=== PATIENT | male | born 1935 | race Caucasian/White ===

== ENCOUNTER → 2017-03-15 | Day surgery (SDC) | payer BC ==
[2017-03-08 08:44] VITALS: Ht 182.9 cm; Wt 84.1 kg
[~2017-03-15] VITALS: Ht 182.9 cm; Wt 84.1 kg
[~2017-03-15] MED LIST: ACET325T96 PO; ALL180 PO; DIGO0.2518 PO; DILT-115 PO; DSWCR15 TOP; FLUO0.05 TOP; HYOS1TAB PO; KETO2SHA TOP; LIDOCAINE HCL 2% 2 ML VIAL (20MG/ML) ONE; METHPOW PO; MULTCAP33 PO; PLMIN90 IN; PROPOFOL IV EMULSION 10 MG/ML 20 ML VIAL IV ONE; RIVA1TAB4 PO; [UNRECOGNIZED DRUG - OTHER] TOP
--- NOTE | 2017-03-15 12:55 | Endo History and Physical ---
History & Physical Date of Service: Mar 15, 2017. Chief Complaint: Hx colon polyps; hx colon ca with resection Referring Physician: Dr Renetta Sarkar History of Present Illness For Colonoscopy Past Surgical History Hx Cardiac Surgery: Yes (CARDIOVERSION, HEART CATH) Hx Internal Defibrillator: No Hx Pacemaker: Yes (2012) Hx Abdominal Surgery: Yes (DEBBIE) Hx of Implantable Prosthesis: No Hx Post-Op Nausea and Vomiting: No Hx Cancer Surgery: Yes (PARTIAL LG INTESTINE REMOVAL, BCC AND SCC REMOVALS) Hx Thoracic Surgery: No Hx Orthopedic: No Hx Urinary Tract Surgery: No Family History Polyp, IBD Social History Smoking Status: Former Smoker Hx Substance Use: No Hx Alcohol Use: Yes (1 DRINK DAILY) Allergies Coded Allergies: Cat Dander (Verified Allergy, Intermediate, asthma, hives, 03/08/17) Dust (Verified Allergy, Intermediate, asthma, hives, 03/08/17) Grass (Verified Allergy, Intermediate, asthma,hives, 03/08/17) Molds & Smuts (Verified Allergy, Intermediate, asthma,hives, 03/08/17) Sulfa Antibiotics (Verified Allergy, Intermediate, hives, 03/08/17) Current Medications Reported Home Medications Medications Dose Route/Sig Max Daily Dose Days Date Category Dose Instructions Preservision Areds (Multiple Vitamins W/ Minerals) 1 Cap Cap 1 Cap PO BID 12/09/15 Reported Ketoconazole (Ketoconazole (Topical)) 2 % Sha 1 Appln TOP 2XWK 12/09/15 Reported Tylenol (Acetaminophen) 325 Mg Tab 2 Tabs PO Q6 PRN 10/31/15 Reported Tiazac (Diltiazem HCl) 240 Mg Capcr 240 Mg PO QAM 01/22/14 Reported Lanoxin (Digoxin) 0.25 Mg Tab 0.25 Mg PO QD@1600 01/22/14 Reported Levsin (Hyoscyamine Sulfate) 0.125 Mg Tab 2 Tabs PO DAILY PRN 02/23/13 Reported Citrucel (Methylcellulose (Laxative)) 1 Pow Pow 1-3 Tsp PO HS 02/23/13 Reported Pulmicort Flexhaler (Budesonide (Inhaler)) 90 Mcg/ Inh 1-2 Puff IN QAM 02/23/13 Reported Xarelto (Rivaroxaban) 20 Mg Tab 20 Mg PO QAM 02/23/13 Reported Lidex 0.05% (Fluocinonide) Cr 1 Appln TOP UD 09/09/11 Reported APPLY DIRECTED TO SCALING SKIN UNDER MISHRA. Desowen 0.05% * (Desonide) Cr 1 Appln TOP UD 09/09/11 Reported APPLY DIRECTED TO EARS FOR ITCHINESS. [Lotrimin HCT 1%] 1 Appln TOP PRN 09/09/11 Reported APPLY NEEDED FOR RASH. Yenni * (Fexofenadine HCl) 180 Mg Tab 180 Mg PO QAM 08/27/06 Reported Vital Signs Weight (Kilograms): 84.09 Height (Feet): 6 Height (Inches): 0 Date Time Temp Pulse Resp B/P (MAP) Pulse Ox O2 Delivery O2 Flow Rate FiO2 03/15/17 12:41 36.4 88 20 147/79 (101) 97 Room Air Physical Exam General Appearance: WD/WN Respiratory/Chest: Respiratory effort: no dyspnea Cardiovascular: Heart Auscultation: RRR Abdomen: Inspection & Palpation: soft (Hx of colon cancer for colonoscopy) Assessment and Plan Hx of colon cancer for colonoscopy
--- NOTE | 2017-03-15 13:20 | Discharge Instructions ---
Endoscopy Patient Instructions Date / Procedure(s) Performed Mar 15, 2017. Colonoscopy Allergy Information Coded Allergies: Cat Dander (Verified Allergy, Intermediate, asthma, hives, 03/08/17) Dust (Verified Allergy, Intermediate, asthma, hives, 03/08/17) Grass (Verified Allergy, Intermediate, asthma,hives, 03/08/17) Molds & Smuts (Verified Allergy, Intermediate, asthma,hives, 03/08/17) Sulfa Antibiotics (Verified Allergy, Intermediate, hives, 03/08/17) Discharge Date / Findings Mar 15, 2017. polyp Medication Instructions Restart Stopped Medication(s): resume meds Reported Home Medications Medications Dose Route/Sig Max Daily Dose Days Date Category Dose Instructions Preservision Areds (Multiple Vitamins W/ Minerals) 1 Cap Cap 1 Cap PO BID 12/09/15 Reported Ketoconazole (Ketoconazole (Topical)) 2 % Sha 1 Appln TOP 2XWK 12/09/15 Reported Tylenol (Acetaminophen) 325 Mg Tab 2 Tabs PO Q6 PRN 10/31/15 Reported Tiazac (Diltiazem HCl) 240 Mg Capcr 240 Mg PO QAM 01/22/14 Reported Lanoxin (Digoxin) 0.25 Mg Tab 0.25 Mg PO QD@1600 01/22/14 Reported Levsin (Hyoscyamine Sulfate) 0.125 Mg Tab 2 Tabs PO DAILY PRN 02/23/13 Reported Citrucel (Methylcellulose (Laxative)) 1 Pow Pow 1-3 Tsp PO HS 02/23/13 Reported Pulmicort Flexhaler (Budesonide (Inhaler)) 90 Mcg/ Inh 1-2 Puff IN QAM 02/23/13 Reported Xarelto (Rivaroxaban) 20 Mg Tab 20 Mg PO QAM 02/23/13 Reported Lidex 0.05% (Fluocinonide) Cr 1 Appln TOP UD 09/09/11 Reported APPLY DIRECTED TO SCALING SKIN UNDER MISHRA. Desowen 0.05% * (Desonide) Cr 1 Appln TOP UD 09/09/11 Reported APPLY DIRECTED TO EARS FOR ITCHINESS. [Lotrimin HCT 1%] 1 Appln TOP PRN 09/09/11 Reported APPLY NEEDED FOR RASH. Yenni * (Fexofenadine HCl) 180 Mg Tab 180 Mg PO QAM 08/27/06 Reported Provider Instructions Activity Restrictions - No exercising or heavy lifting for 24 hours. - Do not drink alcohol the day of the procedure. - Do not drive a car or operate machinery until the day after the procedure. - Do not make any important decisions or sign important papers in 24 hours after the procedure. Following Day: - Return to full activity which may include returning to work/school. Diet Start your diet with liquids and light foods (jello, soup, juice, toast). Then eat your usual diet if not nauseated. Treatment For Common After Affects For mild abdominal pain, bloating, or excessive gas: - Rest - Eat lightly - Lie on right side Follow-Up Information Follow-up with Dr Renetta Sarkar as scheduled Anesthesia Information What You Should Know You have had a procedure that required some medicine to reduce anxiety and discomfort. This treatment is called moderate sedation. After receiving the treatment, you may be sleepy, but you will be able to breathe on your own. The effects of the treatment may last for several hours. Follow these instructions along with Activity/Diet recommendations noted above: * Do NOT do anything where dizziness or clumsiness would be dangerous. * Rest quietly at home today, then you can be up and about tomorrow. * Have a responsible person stay with you the rest of today. * You may have had an I.V. today. If so, you may take the dressing off later today. Recommendations Call your doctor if: * Trouble breathing * Continuous vomiting for more than 24 hours * Temperature above 101 degrees * Severe abdominal pain or bloating * Pain not relieved by pain medicine ordered * There is increased drainage or redness from any incision * A large amount of rectal bleeding greater than 2-3 tablespoons. (If you had a polyp/s removed or have hemorrhoids, a small amount of blood - from the rectum is to be expected.) * You have any unanswered questions or concerns. IN THE EVENT OF A SERIOUS EMERGENCY, GO TO THE NEAREST EMERGENCY ROOM Your discharge instructions were prepared by provider Vishal Carmen. Patient Instructions Signature Page Roosevelt De Los Santos Patient (or Guardian) Signature/Date: I have read and understand the instructions given to me by my caregivers. Caregiver/RN/Doctor Signature/Date: The above-named patient and/or guardian has received patient instructions on this date. + Original Patient Signature Page (only) stays with chart. Please make copy for patient.
--- NOTE | 2017-03-15 13:27 | GI REPORT ---
Procedure Date: 03/15/2017 12:49 PM Procedure: Colonoscopy Indications: Personal history of malignant neoplasm of the colon, Personal history of colonic polyps Medicines: Propofol total dose 290 mg IV, Lidocaine mg 40 IV Complications: No immediate complications. Estimated Blood Loss: Estimated blood loss was minimal. Procedure: Pre-Anesthesia Assessment: - Prior to the procedure, a History and Physical was performed, and patient medications, allergies and sensitivities were reviewed. The patient's tolerance of previous anesthesia was reviewed. - The risks and benefits of the procedure and the sedation options and risks were discussed with the patient. All questions were answered and informed consent was obtained. After I obtained informed consent, the scope was passed under direct vision. Throughout the procedure, the patient's blood pressure, pulse, and oxygen saturations were monitored continuously. The scope was introduced through the anus and advanced to the cecum, identified by appendiceal orifice and ileocecal valve. The colonoscopy was performed without difficulty. The patient tolerated the procedure well. The quality of the bowel preparation was good. Findings: A 3 mm polyp was found in the transverse colon. The polyp was sessile. The polyp was removed with a cold biopsy forceps. Resection and retrieval were complete. Estimated blood loss was minimal. There was evidence of a prior end-to-end colo-colonic anastomosis in the sigmoid colon. This was patent and was characterized by healthy appearing mucosa. The anastomosis was traversed. The terminal ileum appeared normal. Impression: - One 3 mm polyp in the transverse colon, removed with a cold biopsy forceps. Resected and retrieved. - Patent end-to-end colo-colonic anastomosis, characterized by healthy appearing mucosa. - The examined portion of the ileum was normal. Recommendation: - Discharge patient to home (ambulatory). - Continue present medications. - Await pathology results. - Return to primary care physician PRN. Vishal Carmen M.D. Vishal Carmen MD 03/15/2017 1:26:51 PM This report has been signed electronically. Note Initiated On: 03/15/2017 12:49 PM I attest to the content of the Intraoperative Record and orders documented therein, exceptions below
--- NOTE | 2017-03-15 13:51 | Anesthesiology Progress Note ---
Anesthesia Post Op Note Date & Time Mar 15, 2017 at 13:51 Vital Signs Pain Intensity: 0 Vital Signs Past 12 Hours Date Time Temp Pulse Resp B/P (MAP) Pulse Ox O2 Delivery O2 Flow Rate FiO2 03/15/17 13:40 82 20 123/65 (84) 97 Room Air 03/15/17 13:24 78 20 119/68 (85) 97 Room Air 03/15/17 12:41 36.4 88 20 147/79 (101) 97 Room Air Notes Mental Status: alert / awake / arousable, participated in evaluation Pt Amnestic to Procedure: Yes Nausea / Vomiting: adequately controlled Pain: adequately controlled Airway Patency, RR, SpO2: stable & adequate BP & HR: stable & adequate Hydration State: stable & adequate Anesthetic Complications: no major complications apparent
[2017-03-15 14:00] VITALS: BP 122/71; PULSE 83; O2SAT 97
== END | disposition home or self-care (01) ==
LOC: C.GI 12:14
PROVIDERS: ATTEND Internal Medicine Gastroenterology
DX: D12.3 Benign neoplasm of transverse colon (principal); Z85.038 Personal history of other malignant neoplasm of large intestine; Z86.010 Personal history of colon polyps; Z98.0 Intestinal bypass and anastomosis status; Z87.891 Personal history of nicotine dependence; Z79.899 Other long term (current) drug therapy; Z79.02 Long term (current) use of antithrombotics/antiplatelets

== ENCOUNTER → 2017-04-10 | Outpatient (CLI) | payer BC ==
[~2017-04-10] MED LIST changes: -LIDOCAINE HCL 2% 2 ML VIAL (20MG/ML) ONE; -PROPOFOL IV EMULSION 10 MG/ML 20 ML VIAL IV ONE
[2017-04-10 16:21] LABS: BASO % 0.3 %; BASO ABS # 0.03 K/uL (0-0.2); COMPLETE YES; EOS % 1.7 %; HEMATOCRIT 45.9 % (42-52); IG% 0.4 %; LYMPH % 15.4 %; LYMPH ABS # 1.46 K/uL (1.2-3.4); MEAN CORPUSCULAR HEMOGLOBIN 32.7 pg (25-34); MEAN CORPUSCULAR HGB CONC 34.4 g/dl (32-36); MONO % 15.9 %; NEUT % 66.3 %; PLATELET COUNT 211 K/uL (130-400); RED BLOOD COUNT 4.83 M/uL (4.7-6.1); WHITE BLOOD COUNT 9.49 K/uL (4.8-10.8)
[2017-04-10 16:31] LABS: ALT/SGPT 42 U/L (12-78); BLOOD UREA NITROGEN 19 mg/dl (7-18); BUN/CREATININE RATIO 15.8 (10-20); C-REACTIVE PROTEIN 2.35 mg/dl (0-0.29); CALCIUM 9.2 mg/dl (8.5-10.1); CARBON DIOXIDE 26 mmol/L (21-32); CHLORIDE 105 mmol/L (98-107); GLUCOSE 88 mg/dl (70-99); POTASSIUM 4.7 mmol/L (3.5-5.1); SODIUM 137 mmol/L (136-145)
[2017-04-10 16:34] LABS: ALB/GLOB RATIO 0.9 (0.9-2); ALKALINE PHOSPHATASE 82 U/L (45-117); AST/SGOT 29 U/L (15-37); RHEUMATOID FACTOR < 10.0 U/mL (0-15)
[2017-04-10 17:26] LABS: LYME DISEASE AB IGG NEG (NEG); LYME DISEASE AB IGM NEG (NEG)
== END | disposition home or self-care (01) ==
LOC: C.LABSPEC 15:36
PROVIDERS: ATTEND Internal Medicine
DX: M06.4 Inflammatory polyarthropathy (principal); M79.1 Myalgia

== ENCOUNTER → 2017-04-12 | Outpatient (CLI) | payer BC ==
--- NOTE | 2017-04-12 11:30 | DIAGNOSTIC IMAGING REPORT ---
CT OF THE CERVICAL SPINE CLINICAL HISTORY: Cervical radicular pain COMPARISON STUDY: Conventional radiographic study dated 10/31/2015 CT DOSE: 501.88 mGycm TECHNIQUE: CT scan of the cervical spine was performed from the skull base to the thoracic inlet. Images are reviewed in the axial, sagittal, and coronal planes. IV contrast was not administered for this examination. A dose lowering technique was utilized adhering to the principles of ALARA. FINDINGS: The visualized portions of the lung apices reveal no evidence of pneumothorax. The prevertebral soft tissues are normal. No fractures or subluxations are visualized. There are multilevel degenerative changes most pronounced the C4-5, C5-6, and C6-7 levels. There is minor foraminal narrowing at these 3 levels. There is a small posterior disc osteophyte complex at the C5-6 level. IMPRESSION: 1. No acute fractures or traumatic subluxations 2. No destructive lesions 3. Degenerative changes most pronounced the C4-5, C5-6, and C6-7 levels. Electronically signed by: Babak Roy M.D. 04/12/2017 11:28 AM Dictated Date/Time: 04/12/2017 11:25 AM
== END | disposition home or self-care (01) ==
LOC: C.CTS 11:04
PROVIDERS: ATTEND Pain Medicine Interventional Pain Medicine
DX: M54.12 Radiculopathy, cervical region (principal); M50.321 Other cervical disc degeneration at C4-C5 level; M50.322 Other cervical disc degeneration at C5-C6 level; M50.323 Other cervical disc degeneration at C6-C7 level

== ENCOUNTER → 2017-04-29 | Outpatient (CLI) | payer BC | END | disposition home or self-care (01) | LOC: C.LABSPEC 12:20 | PROVIDERS: ATTEND Internal Medicine | DX: R35.0 Frequency of micturition (principal) ==

== ENCOUNTER → 2017-08-12 | Day surgery (SDC) | payer BC ==
[~2017-08-12] VITALS: Ht 182.9 cm; Wt 84.0 kg
[~2017-08-12] MED LIST changes: +AMIO200T4 PO; +CRFL PO; -DIGO0.2518 PO; -FLUO0.05 TOP; +LTRCR30; -METHPOW PO; +METHPOW7; +PANT40TA PO; +PRED-301 PO; +PTDOPS OP; +TRMCR130WC; +[UNRECOGNIZED DRUG - CODE]
[2017-08-12 07:10] VITALS: BP 146/95; PULSE 86; TEMP 36.7; O2SAT 96; Ht 182.9 cm; Wt 84.0 kg
[2017-08-12 07:36] VITALS: BP 146/95; PULSE 92; O2SAT 96
[2017-08-12 07:40] VITALS: BP 153/89; PULSE 92; O2SAT 96
--- NOTE | 2017-08-12 07:40 | History & Physical Bridge Note ---
H&P Re-Evaluation Bridge Note: I have examined the patient, reviewed the History & Physical and in the interval since the performance of the History & Physical I have noted the following changes of clinical significance: No changes noted. I reviewed the indications, procedure, risks and alternatives and he understands and agrees to proceed. Consent obtained.
[2017-08-12 07:45] VITALS: BP 153/91; PULSE 92; O2SAT 96
[2017-08-12 07:50] VITALS: BP 125/105; PULSE 92; O2SAT 96
--- NOTE | 2017-08-12 08:21 | Cardioversion ---
Electricial Cardioversion Rpt Date of Service: 08/12/2017 Electrical Cardioversion Rprt The patient was brought to the laboratory being NPO after midnight and was identified in the laboratory, connected to the recording apparatus including electrocardiographic monitoring, noninvasive blood pressure monitoring and pulse oximetry. Anteroposterior patch electrodes were placed. The patient was anesthetized by the anesthesia department. Once adequate anesthesia was obtained a synchronized biphasic shock was delivered using 200 J with conversion to a sinus rhythm. The patient awoke from the anesthetic without sequela, will be observed briefly and then discharged.
--- NOTE | 2017-08-12 09:32 | Discharge Instructions ---
Discharge Instructions Date of Service Aug 12, 2017. Admission Reason for Admission: Atrial fibrillation Discharge Discharge Diagnosis / Problem: Electrical cardioversion Discharge Goals Goal(s): Improve disease control Activity Recommendations Activity Limitations: resume your previous activity . Instructions / Follow-Up Instructions / Follow-Up ACTIVITY RECOMMENDATIONS: * May resume driving tomorrow. SPECIAL CARE: * May apply burn ointment for skin irritation. * Please contact physician for any lightheadedness, dizziness or palpitations. Current Hospital Diet Patient's current hospital diet: AHA Diet (Heart Healthy) Discharge Diet Recommended Diet: AHA Diet (Heart Healthy) Pending Studies Studies pending at discharge: no Medical Emergencies . Who to Call and When: Medical Emergencies: If at any time you feel your situation is an emergency, please call 911 immediately. . Non-Emergent Contact Non-Emergency issues call your: Primary Care Provider . . "Provider Documentation" section prepared by Victor Manuel Osorio. . VTE Core Measure Inpt VTE Proph given/why not?: Other Anticoagulation
[2017-08-12 09:45] VITALS: BP 127/72; PULSE 64; O2SAT 98
--- NOTE | 2017-08-12 09:52 | Anesthesiology Progress Note ---
Anesthesia Post Op Note Date & Time Aug 12, 2017 at 09:52 Vital Signs Pain Intensity: 0 Vital Signs Past 12 Hours Date Time Temp Pulse Resp B/P (MAP) Pulse Ox O2 Delivery O2 Flow Rate FiO2 08/12/17 09:30 65 16 132/72 (92) 98 Room Air 08/12/17 09:15 60 16 124/68 (86) 98 Room Air 08/12/17 09:00 65 16 128/70 (89) 98 Room Air 08/12/17 08:45 64 16 134/70 (91) 98 Room Air 08/12/17 08:30 65 14 137/73 (94) 96 Room Air 08/12/17 08:25 69 14 120/64 (82) 96 Room Air 08/12/17 08:10 68 14 118/60 (79) 96 Room Air 08/12/17 08:00 65 14 118/65 (82) 96 Room Air 08/12/17 07:50 92 14 125/105 96 Room Air 08/12/17 07:50 92 14 125/105 (112) 96 Room Air 08/12/17 07:45 92 14 153/91 96 Room Air 08/12/17 07:40 92 14 153/89 96 Room Air 08/12/17 07:36 92 14 146/95 96 Room Air 08/12/17 07:10 36.7 86 16 146/95 96 Room Air Notes Mental Status: alert / awake / arousable, participated in evaluation Pt Amnestic to Procedure: Yes Nausea / Vomiting: adequately controlled Pain: adequately controlled Airway Patency, RR, SpO2: stable & adequate BP & HR: stable & adequate Hydration State: stable & adequate Anesthetic Complications: no major complications apparent
== END | disposition home or self-care (01) ==
LOC: C.CATH 06:50
PROVIDERS: ATTEND Internal Medicine Cardiovascular Disease
DX: I48.91 Unspecified atrial fibrillation (principal); Z95.0 Presence of cardiac pacemaker; J45.909 Unspecified asthma, uncomplicated; I10 Essential (primary) hypertension; Z85.828 Personal history of other malignant neoplasm of skin; Z82.5 Family history of asthma and other chronic lower respiratory diseases; Z80.0 Family history of malignant neoplasm of digestive organs; Z82.49 Family history of ischemic heart disease and other diseases of the circulatory system; Z87.891 Personal history of nicotine dependence; Z88.2 Allergy status to sulfonamides

== ENCOUNTER → 2017-09-20 | Day surgery (SDC) | payer BC ==
[~2017-09-20] VITALS: Ht 182.9 cm; Wt 82.0 kg
[~2017-09-20] MED LIST changes: +CLOB1OIN2 TOP; +DILT120C PO; +DLCSR120 PO; +LIDOCAINE HCL 2% 2 ML VIAL (20MG/ML) ONE; +PROPOFOL IV EMULSION 10 MG/ML 20 ML VIAL IV ONE
[2017-09-20 06:53] VITALS: BP 158/94; PULSE 96; TEMP 36.3; O2SAT 95; Ht 182.9 cm; Wt 82.0 kg
[2017-09-20 07:55] VITALS: BP 141/94; PULSE 92; O2SAT 99
[2017-09-20 08:00] VITALS: BP 129/73; PULSE 65; O2SAT 99
--- NOTE | 2017-09-20 08:12 | Anesthesiology Progress Note ---
Anesthesia Post Op Note Date & Time Sep 20, 2017 at 08:11 Vital Signs Pain Intensity: 0 Vital Signs Past 12 Hours Date Time Temp Pulse Resp B/P (MAP) Pulse Ox O2 Delivery O2 Flow Rate FiO2 09/20/17 08:00 65 18 129/73 99 Nasal Cannula 6 09/20/17 07:55 92 18 141/94 99 Nasal Cannula 6 09/20/17 06:53 36.3 96 18 158/94 (115) 95 Room Air Notes Mental Status: alert / awake / arousable, participated in evaluation Pt Amnestic to Procedure: Yes Nausea / Vomiting: adequately controlled Pain: adequately controlled Airway Patency, RR, SpO2: stable & adequate BP & HR: stable & adequate Hydration State: stable & adequate Anesthetic Complications: no major complications apparent
--- NOTE | 2017-09-20 08:16 | Cardioversion ---
Electricial Cardioversion Rpt Date of Service: 09/20/2017 Electrical Cardioversion Rprt The patient was brought to the laboratory being NPO after midnight and was identified in the laboratory, connected to the recording apparatus including electrocardiographic monitoring, noninvasive blood pressure monitoring and pulse oximetry. Anteroposterior patch electrodes were placed. The patient was anesthetized by the anesthesia department. Once adequate anesthesia was obtained a synchronized biphasic shock was delivered using 200 J with conversion to a sinus rhythm. The pacer was interrogated and reprogrammed to a higher atrial pacing rate to reduce risk of recurrence. The patient awoke from the anesthetic without sequela, will be observed briefly and then discharged.
--- NOTE | 2017-09-20 08:49 | Discharge Instructions ---
Discharge Instructions Date of Service Sep 20, 2017. Admission Reason for Admission: Atrial fibrillation Discharge Discharge Diagnosis / Problem: Atrial fibrillation Discharge Goals Goal(s): Improve disease control Activity Recommendations Activity Limitations: resume your previous activity . Instructions / Follow-Up Instructions / Follow-Up ACTIVITY RECOMMENDATIONS: * May resume driving tomorrow. SPECIAL CARE: * May apply burn ointment for skin irritation. * Please contact physician for any lightheadedness, dizziness or palpitations. Current Hospital Diet Patient's current hospital diet: AHA Diet (Heart Healthy) Discharge Diet Recommended Diet: AHA Diet (Heart Healthy) Procedures Procedures Performed: Electrical cardioversion Pending Studies Studies pending at discharge: no Medical Emergencies . Who to Call and When: Medical Emergencies: If at any time you feel your situation is an emergency, please call 911 immediately. . Non-Emergent Contact Non-Emergency issues call your: Primary Care Provider . . "Provider Documentation" section prepared by Victor Manuel Osorio. . VTE Core Measure Inpt VTE Proph given/why not?: Other Anticoagulation
[2017-09-20 09:00] VITALS: BP 150/82; PULSE 85; O2SAT 95
== END | disposition home or self-care (01) ==
LOC: C.CATH 06:41 → CANBEDREQ 09:11
PROVIDERS: ATTEND Internal Medicine Cardiovascular Disease
DX: I48.0 Paroxysmal atrial fibrillation (principal); C85.90 Non-Hodgkin lymphoma, unspecified, unspecified site; H35.30 Unspecified macular degeneration; L11.1 Transient acantholytic dermatosis [Grover]; J45.909 Unspecified asthma, uncomplicated; I48.92 Unspecified atrial flutter; I10 Essential (primary) hypertension; Z85.828 Personal history of other malignant neoplasm of skin; Z79.899 Other long term (current) drug therapy; Z79.01 Long term (current) use of anticoagulants; Z79.52 Long term (current) use of systemic steroids; Z95.0 Presence of cardiac pacemaker

== ENCOUNTER → 2017-11-11 | Outpatient (CLI) | payer BC ==
[~2017-11-11] MED LIST changes: +ACET-1693 PO; -ACET325T96 PO; -DILT-115 PO; +DILT-213 PO; -DILT120C PO; -LIDOCAINE HCL 2% 2 ML VIAL (20MG/ML) ONE; -PANT40TA PO; -PROPOFOL IV EMULSION 10 MG/ML 20 ML VIAL IV ONE
--- NOTE | 2017-11-11 10:46 | DIAGNOSTIC IMAGING REPORT ---
CHEST 2 VIEWS ROUTINE CLINICAL HISTORY: CHRONIC COUGH COMPARISON STUDY: Chest radiograph and chest CT October 31, 2015 per FINDINGS: A dual lead left subclavian pacemaker is in place. There is no pneumothorax or pleural effusion. There is no consolidation or evidence for pulmonary edema. There is mild lower lung interstitial thickening. There is no consolidation to suggest pneumonia. IMPRESSION: 1. No consolidation to suggest pneumonia. 2. Mild lower lung interstitial thickening. This likely reflects normal vasculature however early interstitial lung disease could have this appearance. Electronically signed by: Timothy Torrez M.D. 11/11/2017 10:45 AM Dictated Date/Time: 11/11/2017 10:35 AM
== END | disposition home or self-care (01) ==
LOC: C.RAD 09:54
PROVIDERS: ATTEND Internal Medicine
DX: R05 Cough (principal)

== ENCOUNTER → 2017-11-12 | Outpatient (CLI) | payer BC ==
--- NOTE | 2017-11-12 08:58 | DIAGNOSTIC IMAGING REPORT ---
(BARIUM SWALLOW) ESOPHAGUS CLINICAL HISTORY: 82 years-old Male with DYSPHAGIA,CHRONIC COUGH. Chronic cough with dysphagia TECHNIQUE: Barium contrast and effervescent crystals were administered to the patient under fluoroscopic examination. Multiple images were obtained and submitted for review. FLUOROSCOPY TIME: 1.3 minutes COMPARISON: CTA of the chest 10/31/2015. FINDINGS: During deglutition, contrast material flowed freely through the cervical esophagus. No filling defect or mucosal abnormality is identified. No abnormal stricturing or mass effect is seen. The mid to distal esophagus is well coated and distended. No abnormal stricturing or mucosal abnormality is identified. No significant reflux or hiatal hernia was demonstrated during the exam. The GE junction is normal in appearance. Mild tertiary contractions of the distal esophagus. Cardiac pacer leads are partially imaged. IMPRESSION: Mild esophageal dysmotility with tertiary contractions of the distal esophagus. Otherwise normal esophagram. The above report was generated using voice recognition software. It may contain grammatical, syntax or spelling errors. Electronically signed by: Josue Jacobs M.D. 11/12/2017 8:56 AM Dictated Date/Time: 11/12/2017 8:54 AM
== END | disposition home or self-care (01) ==
LOC: C.RAD 07:51
PROVIDERS: ATTEND Internal Medicine
DX: R05 Cough (principal); R13.10 Dysphagia, unspecified

== ENCOUNTER → 2018-01-03 | Outpatient (CLI) | payer BC ==
[~2018-01-03] MED LIST changes: +CPR/500 PO; +FEXO1TAB49 PO; +PLMIN90 INH
[2018-01-03 13:09] LABS: BASO % 0.2 %; BASO ABS # 0.02 K/uL (0-0.2); EOS % 0.2 %; EOS ABS # 0.02 K/uL (0-0.5); HEMATOCRIT 42.1 % (42-52); HEMOGLOBIN 14.1 g/dL (14.0-18.0); IG# 0.05 K/uL (0.00-0.02); LYMPH % 5.3 %; LYMPH ABS # 0.66 K/uL (1.2-3.4); MEAN CELL VOLUME 92.1 fL (80-100); MEAN CORPUSCULAR HEMOGLOBIN 30.9 pg (25-34); MEAN CORPUSCULAR HGB CONC 33.5 g/dl (32-36); MEAN PLATELET VOLUME 11.8 fL (7.4-10.4); MONO % 15.6 %; MONO ABS # 1.93 K/uL (0.11-0.59); NEUT % 78.3 %; PLATELET COUNT 227 K/uL (130-400); RED CELL DISTRIBUTION WIDTH CV 14.7 % (11.5-14.5); RED CELL DISTRIBUTION WIDTH SD 49.6 fL (36.4-46.3); WHITE BLOOD COUNT 12.38 K/uL (4.8-10.8)
[2018-01-03 13:23] LABS: ALBUMIN 2.9 gm/dl (3.4-5.0); ALT/SGPT 55 U/L (12-78); AST/SGOT 63 U/L (15-37); BLOOD UREA NITROGEN 26 mg/dl (7-18); CALCIUM 8.5 mg/dl (8.5-10.1); CARBON DIOXIDE 24 mmol/L (21-32); CREATININE 1.42 mg/dl (0.60-1.40); GLUCOSE 124 mg/dl (70-99); SODIUM 133 mmol/L (136-145)
[2018-01-03 13:28] LABS: ALKALINE PHOSPHATASE 91 U/L (45-117); TOTAL PROTEIN 7.1 gm/dl (6.4-8.2)
== END | disposition home or self-care (01) ==
LOC: C.LABSPEC 12:24
PROVIDERS: ATTEND Internal Medicine
DX: R06.00 Dyspnea, unspecified (principal); N41.9 Inflammatory disease of prostate, unspecified

== ENCOUNTER 2018-01-04 09:15 | Inpatient (IN) | payer BC, OTHER ==
[~2018-01-04] VITALS: Ht 182.9 cm; Wt 83.2 kg
[2018-01-04] VITALS (8 sets, daily range): BP systolic 126–151; BP diastolic 65–86; PULSE 71–84; TEMP 36.4–37.4; O2SAT 92–97; Ht 182.9 cm; Wt 83.2 kg
[~2018-01-04 09:15] MED LIST changes: -CPR/500 PO; -FEXO1TAB49 PO; -PLMIN90 INH
[2018-01-04] MEDS ORDERED: ONDANSETRON INJ 2 MG/ML 2 ML VIAL IV STA (09:38)
--- NOTE | 2018-01-04 09:45 | EMERGENCY ROOM VISIT NOTE ---
History Report prepared by Pepper: Gurvinder Blunt Under the Supervision of: Dr. Tremayne Barton D.O. First contact with patient: 09:33 Chief Complaint: ILLNESS Stated Complaint: FEVER,VOMITING,WEAKNESS,HAS PROSTITIS History of Present Illness The patient is a 82 year old male who presents to the Emergency Room with complaints of worsening illness symptoms that began 4 days ago. Patient states that he is unable to urinate. He states that it "landeros" when he does urinate. Patient adds that he got shortness of breath yesterday. Patient states that he has also felt nauseas. He states that he is currently nauseas in the ER. He adds that he has had an intermittent fever for the past 2 days. Patient adds that his stomach is more distended than usual. He adds that he has had a cough. He states that he saw Dr. Cordon last week. Patient states that he took two doses of Cipro yesterday and 1 today. He states that he started "profusely vomiting" after taking the medication. He denies back pain. Patient states that he does not use oxygen at home. Pertinent past medical history includes atrial fibrillation. He states that the atrial fibrillation was resolved a month ago. Patient states that he takes 5mg of Prednisone for his arthritis. He states that he has not take Prednisone the past 2 days. He states that his family doctor is Dr. Tano Bush. Source of History: patient Onset: 4 days ago Position: other (Global) Timing: worsening Modifying Factors (Relieving): other (None) Associated Symptoms: + fevers, + SOB, + nausea, + vomiting, + urinary symptoms, No back pain Review of Systems See HPI for pertinent positives & negatives. A total of 10 systems reviewed and were otherwise negative. 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 (16) Sciatica Family History Heart disease Lung disease Social History Smoking Status: Never Smoker Marital Status: Housing Status: lives with family Occupation Status: retired Current/Historical Medications Scheduled Amiodarone Hcl (Cordarone), 200 MG PO DAILY Budesonide (Pulmicort Flexhaler), 1-2 PUFFS INH QAM Ciprofloxacin (Ciprofloxacin HCl), 1 TAB PO UD Clobetasol Propionate (Temovate), 1 APPLN TOP BID Clotrimazole (Lotrimin 1%), DIRECTED Fexofenadine Hcl (Yenni Allergy), 180 MG PO QAM Ketoconazole (Topical) (Ketoconazole), 1 APPLN TOP 2XWK Methylcellulose (Laxative) (Citrucel Fiber Laxative), DIRECTED Multiple Vitamins W/ Minerals (Preservision Areds), 1 CAP PO BID Olopatadine Hydrochloride (Pataday), 1 DROPS OP DIRECTED Prednisone (Prednisone), 5 MG PO DAILY Ranibizumab (Lucentis), DIRECTED Rivaroxaban (Xarelto), 20 MG PO QAM Sucralfate (Carafate), 10 ML PO QID Triamcinolone Acet (Aristocort 0.1%), DIRECTED [Lotrimin HCT 1%], 1 APPLN TOP PRN Scheduled PRN Acetaminophen Tab (Tylenol), 2 TABS PO Q6 PRN for Pain Hyoscyamine Sulfate (Levsin), 2 TABS PO DAILY PRN for ABDOMINAL CRAMPING Allergies Coded Allergies: Cat Dander (Verified Allergy, Intermediate, asthma, hives, 01/04/18) Dust (Verified Allergy, Intermediate, asthma, hives, 01/04/18) Grass (Verified Allergy, Intermediate, asthma,hives, 01/04/18) Molds & Smuts (Verified Allergy, Intermediate, asthma,hives, 01/04/18) Sulfa Antibiotics (Verified Allergy, Intermediate, hives, 01/04/18) Physical Exam Vital Signs Date Time Temp Pulse Resp B/P (MAP) Pulse Ox O2 Delivery O2 Flow Rate FiO2 01/04/18 10:25 70 16 128/66 93 Nasal Cannula 5.0 01/04/18 09:49 89 Nasal Cannula 4.0 01/04/18 09:35 75 01/04/18 09:23 36.8 76 28 122/60 71 Room Air Physical Exam GENERAL: Patient is awake, alert, and in no acute distress. Patient is resting comfortably and somewhat anxious EYES: The conjunctivae are clear. The pupils are round and reactive. EARS, NOSE, MOUTH AND THROAT: The nose is without any evidence of any deformity. Mucous membranes are moist tongue is midline NECK: The neck is nontender and supple. RESPIRATORY: Lung sounds diminished at both bases. Rales at both bases. CARDIOVASCULAR: Regular rate and rhythm noted to auscultation. Fracture rub suggested on auscultation. GASTROINTESTINAL: The abdomen is moderately distended with suprapubic tenderness to palpitation. No guarding or rigidity. Bowel sounds are present in all quadrants. BACK: No midline tenderness or or step-off noted range of motion in flexion extension as well as rotation no signs of muscle spasm noted MUSCULOSKELETAL/EXTREMITIES: There is no evidence of gross deformity full range of motion is noted in the hips and shoulders SKIN: There is no obvious evidence of any rash. There are no petechiae, pallor or cyanosis noted. NEUROLOGIC: Patient is awake alert and oriented x3. Medical Decision & Procedures ER Provider Diagnostic Interpretation: Radiology results as stated below per my review and radiologist interpretation: (CHEST FOR PE) ANGIO WITH CLINICAL HISTORY: 82 years-old Male presenting with ^SOB, weakness, fever. TECHNIQUE: Multidetector CT angiography of the chest was performed after administration of intravenous contrast. 3-D volumetric and/or maximum intensity projection (MIP) images were subsequently reconstructed for review. IV contrast: 94 mL of Optiray 320. A dose lowering technique was used consistent with the principles of ALARA (as low as reasonably achievable). COMPARISON: 10/31/2015. CT DOSE (mGy.cm): The estimated cumulative dose is 466.46 mGy.cm. FINDINGS: Storage Facility Rental Clerk topogram: Diffuse pulmonary infiltrates. 2-lead left subclavian pacer. Pulmonary vasculature: The study is adequate for assessment of the pulmonary vascular tree. No filling defect within the pulmonary arteries to suggest embolus. Main pulmonary artery is not enlarged. No flattening of the interventricular septum. No intracardiac filling defect. No reflux of contrast into the hepatic veins. Remaining chest: On soft tissue windows, normal thyroid and thoracic inlet. Numerous subcentimeter lymph nodes in the prevascular region are abnormally enlarged. Enlarged subcentimeter bilateral hilar lymph nodes. These are likely reactive. Atherosclerosis of the aorta. Mild ectasia of the ascending aorta, which measures 4 cm in diameter. Normal heart size. Coronary artery and aortic valve calcification. Pacer leads to the right atrium and right ventricular apex noted. No pericardial effusion. Trace pleural effusions. Upper abdomen normal. On lung windows, diffuse groundglass and patchy solid nodular consolidation with a central and peribronchovascular predominance is evident in all 5 lobes most severely affecting the upper lobes. Airways remain patent though bronchial wall thickening may be present to a mild degree. Interlobular septal thickening. On bone windows, degenerative changes of the spine. IMPRESSION: 1. No evidence of pulmonary embolus. 2. Diffuse pulmonary infiltrates most concerning for multifocal pneumonia or diffuse alveolar damage. 3. Trace bilateral parapneumonic effusions. 4. Reactive mediastinal and hilar lymphadenopathy. Electronically signed by: Wander Kay M.D. 01/04/2018 11:25 AM CHEST ONE VIEW PORTABLE CLINICAL HISTORY: 82 years-old Male presenting with Sepsis. TECHNIQUE: Portable upright AP view of the chest was obtained. COMPARISON: 11/11/2017. FINDINGS: Left subclavian pacer with leads to the right atrium and right ventricular apex. Atherosclerosis of aortic arch. Cardiac silhouette mildly enlarged. Pulmonary vascular prominence. Bronchial wall thickening. Patchy and hazy diffuse lung opacities with a mid to basilar predominance new from prior. No large pleural effusion or pneumothorax. Osseous structures normal. Upper abdomen normal. IMPRESSION: 1. Patchy diffuse infiltrates could represent pulmonary edema, multifocal pneumonia, or diffuse alveolar damage. 2. Mild cardiomegaly with findings suggesting congestive change. Electronically signed by: Wander Kay M.D. 01/04/2018 10:08 AM Laboratory Results 01/04/18 09:50 Red Blood Count 4.27, Mean Corpuscular Volume 89.7, Mean Corpuscular Hemoglobin 31.6, Mean Corpuscular Hemoglobin Concent 35.2, Mean Platelet Volume 11.1, Neutrophils (%) (Auto) 84.4, Lymphocytes (%) (Auto) 3.8, Monocytes (%) (Auto) 11.1, Eosinophils (%) (Auto) 0.1, Basophils (%) (Auto) 0.2, Neutrophils # (Auto ) 10.82, Lymphocytes # (Auto) 0.48, Monocytes # (Auto) 1.42, Eosinophils # (Auto ) 0.01, Basophils # (Auto) 0.02 01/04/18 09:50 Test 01/04/18 09:50 01/04/18 09:56 01/04/18 10:15 01/04/18 10:18 White Blood Count 12.80 K/uL (4.8-10.8) Red Blood Count 4.27 M/uL (4.7-6.1) Hemoglobin 13.5 g/dL (14.0-18.0) Hematocrit 38.3 % (42-52) Mean Corpuscular Volume 89.7 fL (80-100) Mean Corpuscular Hemoglobin 31.6 pg (25-34) Mean Corpuscular Hemoglobin Concent 35.2 g/dl (32-36) Platelet Count 186 K/uL (130-400) Mean Platelet Volume 11.1 fL (7.4-10.4) Neutrophils (%) (Auto) 84.4 % Lymphocytes (%) (Auto) 3.8 % Monocytes (%) (Auto) 11.1 % Eosinophils (%) (Auto) 0.1 % Basophils (%) (Auto) 0.2 % Neutrophils # (Auto) 10.82 K/uL (1.4-6.5) Lymphocytes # (Auto) 0.48 K/uL (1.2-3.4) Monocytes # (Auto) 1.42 K/uL (0.11-0.59) Eosinophils # (Auto) 0.01 K/uL (0-0.5) Basophils # (Auto) 0.02 K/uL (0-0.2) RDW Standard Deviation 47.3 fL (36.4-46.3) RDW Coefficient of Variation 14.3 % (11.5-14.5) Immature Granulocyte % (Auto) 0.4 % Immature Granulocyte # (Auto) 0.05 K/uL (0.00-0.02) Erythrocyte Sedimentation Rate 38 mm/hr (0-14) Prothrombin Time 16.3 SECONDS (9.0-12.0) Prothromb Time International Ratio 1.6 (0.9-1.1) Activated Partial Thromboplast Time 50.9 SECONDS (21.0-31.0) Partial Thromboplastin Ratio 2.0 Est Creatinine Clear Calc Drug Dose 41.6 ml/min Estimated GFR () 48.7 Estimated GFR (Non- 42.0 BUN/Creatinine Ratio 19.2 (10-20) Calcium Level 8.0 mg/dl (8.5-10.1) Phosphorus Level 2.6 mg/dl (2.5-4.9) Magnesium Level 1.8 mg/dl (1.8-2.4) Total Bilirubin 1.1 mg/dl (0.2-1) Aspartate Amino Transf (AST/SGOT) 132 U/L (15-37) Alanine Aminotransferase (ALT/SGPT) 108 U/L (12-78) Alkaline Phosphatase 91 U/L (45-117) Total Creatine Kinase 132 U/L (39-308) Creatine Kinase MB 2.3 ng/ml (0.5-3.6) Creatine Kinase MB Ratio 1.7 (0-3.0) C-Reactive Protein 30.00 mg/dl (0-0.29) Pro-B-Type Natriuretic Peptide 3001 pg/ml (0-1800) Total Protein 6.6 gm/dl (6.4-8.2) Albumin 2.6 gm/dl (3.4-5.0) Globulin 4.0 gm/dl (2.5-4.0) Albumin/Globulin Ratio 0.6 (0.9-2) Lipase 112 U/L (73-393) Bedside Lactic Acid Venous 4.77 mmol/L (0.90-1.70) Urine Color DK YELLOW Urine Appearance CLEAR (CLEAR) Urine pH 5.0 (4.5-7.5) Urine Specific [place] 1.039 (1.000-1.030) Urine Protein 1+ (NEG) Urine Glucose (UA) NEG (NEG) Urine Ketones TRACE (NEG) Urine Occult Blood NEG (NEG) Urine Nitrite POS (NEG) Urine Bilirubin NEG (NEG) Urine Urobilinogen NEG (NEG) Urine Leukocyte Esterase NEG (NEG) Urine WBC (Auto) 1-5 /hpf (0-5) Urine RBC (Auto) 0-4 /hpf (0-4) Urine Hyaline Casts (Auto) 1-5 /lpf (0-5) Urine Epithelial Cells (Auto) 10-20 /lpf (0-5) Urine Bacteria (Auto) NEG (NEG) Urine Crystals AMORPHOUS SEDIMENT (NONE Urine Pathogenic Casts 0-3 GRANULAR CASTS /lpf (0) Venous Blood pH 7.44 (7.36-7.41) Venous Blood Partial Pressure CO2 35 mmHg (38.0-50.0) Venous Blood Partial Pressure O2 29 mmHg Venous Blood HCO3 23 mmol/L Venous Blood Oxygen Saturation < 60.0 % Venous Blood Base Excess -0.5 mEq/L Test 01/04/18 10:21 Bedside Hemoglobin 13.3 g/dl (14.0-18.0) Bedside Hematocrit 39 % (42-52) Bedside Sodium 130 mEq/L (135-144) Bedside Potassium 4.3 mEq/L (3.3-5.0) Bedside Chloride 94 mEq/L (101-112) Bedside Total CO2 21 mEq/l (24-31) Anion Gap 20.0 mmol/L (16-25) Bedside Blood Urea Nitrogen 29 mg/dl (7-18) Bedside Creatinine 1.2 mg/dl (0.6-1.3) Bedside Glucose (other) 161 mg/dl (70-99) Bedside Ionized Calcium (Carla) 1.08 mmol/l (1.12-1.32) Laboratory results per my review. Medications Administered Medications (Trade) Dose Ordered Sig/Sirisha Route Start Time Stop Time Status Last Admin Dose Admin Ondansetron HCl (Zofran Inj) 4 mg NOW STAT IV 01/04/18 09:38 01/04/18 09:39 DC 01/04/18 10:29 4 MG Piperacillin Sod/ Tazobactam Sod (Zosyn Iv) 4.5 gm NOW STAT IV 01/04/18 10:33 01/04/18 10:34 DC 01/04/18 10:52 4.5 GM Sodium Chloride 1,000 ml @ 999 mls/hr Q1H1M STAT IV 01/04/18 10:42 01/04/18 11:42 DC 01/04/18 10:54 999 MLS/HR ECG Per My Interpretation Indication: SOB/dyspnea Rate (beats per minute): 74 Rhythm: normal sinus Findings: no ectopy, other (No acute ST segments) Comparison ECG Date: 09/03/18 Change: no significant change (Atrial paced rhythm noted on 09/03/18 but otherwise no change) ED Course 0935: The patient was evaluated in room B6. A complete history and physical examination were performed. 0938: Zofran Inj 4mg IV 1033: Zosyn Iv 4.5gm IV 1042: NSS 1,000 ml @ 999 mls/hr IV 1100: Ioversol 100ml IV 1106: Upon reevaluation, the patient will be further evaluated. I discussed results and treatment plan with him. He verbalizes agreement and understanding. I [place] [facility] The patient will be evaluated for further management and care. Medical Decision Prior records/ancillary studies reviewed. Triage Nursing notes reviewed. Additional history obtained from the family. The patient's history was concerning for respiratory difficulties. Differential diagnosis: Etiologies such as infections, reactive airway disease, pneumonia, pneumothorax , COPD, CHF, cardiac ischemia, pulmonary embolism, musculoskeletal, gastrointestinal, as well as others were entertained. The patient is an 82-year-old male who presented to the emergency department for an evaluation of difficulty urinating. The patient was started on antibiotic by his primary care physician for presumed prostatitis. The patient was found to have abnormal lung sounds and hypoxia. The patient's initial chest x-ray appeared to be consistent with pneumonia but I was concerned this could be related to a cardiac cause and possibly pulmonary edema. He was given a fluid bolus as well as IV antibiotics. I discussed the patient's laboratory and radiographic studies with him. He was sent for CT of the chest for concern that there was another cause for this overall clinical picture. The patient appears to have signs of bilateral extensive infiltrate on his lungs. I discussed his case with the on-call [facility] hospitalist. Initially he was treated with supplemental oxygen but then was placed on BiPAP. The patient was reevaluated multiple times. He was feeling much better on subsequent reevaluation. Medication Reconcilliation Current Medication List: was personally reviewed by me Blood Pressure Screening Patient's blood pressure: Elevated blood pressure Addressed as an inpatient. Consults Time Called: 1042 Consulting Physician: Dr. Servin - [facility] Returned Call: [phone] I discussed the patient's case with Dr. Servin. The patient will be evaluated for further management. Impression Primary Impression: Bilateral pneumonia Additional Impressions: Hypoxia Lactic acidosis Acute respiratory failure with hypoxia Critical Care I have personally spent greater than 45 minutes of critical care time in the direct management of this patient. This includes bedside care, interpretation of diagnostic studies, and testing, discussion with consultants, patient, and family members, and other required patient management activities. This 45 minutes is in excess of all separately billable procedures. Scribe Attestation The scribe's documentation has been prepared under my direction and personally reviewed by me in its entirety. I confirm that the note above accurately reflects all work, treatment, procedures, and medical decision making performed by me. Departure Information Dispostion Being Evaluated By Hospitalist Referrals No Doctor, Assigned (PCP) Forms HOME CARE DOCUMENTATION FORM, IMPORTANT VISIT INFORMATION, WORK / SCHOOL INSTRUCTIONS Patient Instructions My [facility] Problem Qualifiers Primary Impression: Bilateral pneumonia Pneumonia type: due to unspecified organism Lung location: unspecified part of lung Qualified Codes: J18.9 - Pneumonia, unspecified organism
--- NOTE | 2018-01-04 10:10 | DIAGNOSTIC IMAGING REPORT ---
CHEST ONE VIEW PORTABLE CLINICAL HISTORY: 82 years-old Male presenting with Sepsis. TECHNIQUE: Portable upright AP view of the chest was obtained. COMPARISON: 11/11/2017. FINDINGS: Left subclavian pacer with leads to the right atrium and right ventricular apex. Atherosclerosis of aortic arch. Cardiac silhouette mildly enlarged. Pulmonary vascular prominence. Bronchial wall thickening. Patchy and hazy diffuse lung opacities with a mid to basilar predominance new from prior. No large pleural effusion or pneumothorax. Osseous structures normal. Upper abdomen normal. IMPRESSION: 1. Patchy diffuse infiltrates could represent pulmonary edema, multifocal pneumonia, or diffuse alveolar damage. 2. Mild cardiomegaly with findings suggesting congestive change. Electronically signed by: Wander Kay M.D. 01/04/2018 10:08 AM Dictated Date/Time: 01/04/2018 10:07 AM
[2018-01-04 10:13] LABS: BASO % 0.2 %; BASO ABS # 0.02 K/uL (0-0.2); EOS % 0.1 %; EOS ABS # 0.01 K/uL (0-0.5); HEMATOCRIT 38.3 % (42-52); HEMOGLOBIN 13.5 g/dL (14.0-18.0); IG# 0.05 K/uL (0.00-0.02); LYMPH % 3.8 %; LYMPH ABS # 0.48 K/uL (1.2-3.4); MEAN CELL VOLUME 89.7 fL (80-100); MEAN CORPUSCULAR HEMOGLOBIN 31.6 pg (25-34); MEAN CORPUSCULAR HGB CONC 35.2 g/dl (32-36); MEAN PLATELET VOLUME 11.1 fL (7.4-10.4); MONO % 11.1 %; MONO ABS # 1.42 K/uL (0.11-0.59); NEUT % 84.4 %; NEUT ABS # 10.82 K/uL (1.4-6.5); PLATELET COUNT 186 K/uL (130-400); RED CELL DISTRIBUTION WIDTH CV 14.3 % (11.5-14.5); RED CELL DISTRIBUTION WIDTH SD 47.3 fL (36.4-46.3)
[2018-01-04 10:29] LABS: ALBUMIN 2.6 gm/dl (3.4-5.0); CREATININE 1.53 mg/dl (0.60-1.40); POTASSIUM 4.4 mmol/L (3.5-5.1)
[2018-01-04 10:30] LABS: INR 1.6 (0.9-1.1)
[2018-01-04 10:33] LABS: ISTAT CREATININE 1.2 mg/dl (0.6-1.3); ISTAT IONIZED CALCIUM 1.08 mmol/l (1.12-1.32); ISTAT POTASSIUM 4.3 mEq/L (3.3-5.0)
[2018-01-04] MEDS ORDERED: PIPERACILLIN/TAZOBACTAM 4.5 GM/100ML D5W IV STA (10:33)
[2018-01-04 10:36] LABS: CKMB 2.3 ng/ml (0.5-3.6); PHOSPHORUS 2.6 mg/dl (2.5-4.9); PTT PATIENT 50.9 SECONDS (21.0-31.0); TOTAL PROTEIN 6.6 gm/dl (6.4-8.2)
[2018-01-04] MEDS ORDERED: SODIUM CHLORIDE 0.9% 1000ML 1,000 ML IV STA (10:42)
[2018-01-04] MEDS ORDERED: OPTIRAY 320 IV PRN (11:00)
[2018-01-04] MEDS ORDERED: CPR/500 PO (11:08)
[2018-01-04] MEDS ORDERED: FEXO1TAB49 PO (11:08)
[2018-01-04] MEDS ORDERED: PLMIN90 INH (11:08)
--- NOTE | 2018-01-04 11:26 | DIAGNOSTIC IMAGING REPORT ---
(CHEST FOR PE) ANGIO WITH CLINICAL HISTORY: 82 years-old Male presenting with ^SOB, weakness, fever. TECHNIQUE: Multidetector CT angiography of the chest was performed after administration of intravenous contrast. 3-D volumetric and/or maximum intensity projection (MIP) images were subsequently reconstructed for review. IV contrast: 94 mL of Optiray 320. A dose lowering technique was used consistent with the principles of ALARA (as low as reasonably achievable). COMPARISON: 10/31/2015. CT DOSE (mGy.cm): The estimated cumulative dose is 466.46 mGy.cm. FINDINGS: Power Equipment Technology Instructor topogram: Diffuse pulmonary infiltrates. 2-lead left subclavian pacer. Pulmonary vasculature: The study is adequate for assessment of the pulmonary vascular tree. No filling defect within the pulmonary arteries to suggest embolus. Main pulmonary artery is not enlarged. No flattening of the interventricular septum. No intracardiac filling defect. No reflux of contrast into the hepatic veins. Remaining chest: On soft tissue windows, normal thyroid and thoracic inlet. Numerous subcentimeter lymph nodes in the prevascular region are abnormally enlarged. Enlarged subcentimeter bilateral hilar lymph nodes. These are likely reactive. Atherosclerosis of the aorta. Mild ectasia of the ascending aorta, which measures 4 cm in diameter. Normal heart size. Coronary artery and aortic valve calcification. Pacer leads to the right atrium and right ventricular apex noted. No pericardial effusion. Trace pleural effusions. Upper abdomen normal. On lung windows, diffuse groundglass and patchy solid nodular consolidation with a central and peribronchovascular predominance is evident in all 5 lobes most severely affecting the upper lobes. Airways remain patent though bronchial wall thickening may be present to a mild degree. Interlobular septal thickening. On bone windows, degenerative changes of the spine. IMPRESSION: 1. No evidence of pulmonary embolus. 2. Diffuse pulmonary infiltrates most concerning for multifocal pneumonia or diffuse alveolar damage. 3. Trace bilateral parapneumonic effusions. 4. Reactive mediastinal and hilar lymphadenopathy. Electronically signed by: Wander Kay M.D. 01/04/2018 11:25 AM Dictated Date/Time: 01/04/2018 11:20 AM
[2018-01-04] MEDS ORDERED: ALUMINUM/MAGNESIUM/SIMETH (MAALOX MAX) 30 ML UDC PO PRN (11:45)
[2018-01-04] MEDS ORDERED: ACETAMINOPHEN 325 MG TAB PO PRN (11:45)
[2018-01-04] MEDS ORDERED: ONDANSETRON INJ 2 MG/ML 2 ML VIAL IV PRN (11:45)
[2018-01-04] MEDS ORDERED: MAGNESIUM HYDROXIDE SUSP 30 ML UDC PO PRN (11:45)
[2018-01-04] MEDS ORDERED: VANCOMYCIN CONSULT ACTIVE PRN (11:45)
--- NOTE | 2018-01-04 12:12 | History and Physical ---
History & Physical Date & Time of Service: January 04, 2018 at 12:03 Chief Complaint: Fever,Vomiting,Weakness,Has Prostitis Primary Care Physician: No Doctor, Assigned History of Present Illness 82-year-old male patient of Dr. Oquendo he presents with about 4 day prehospital illness initially beginning with dysuria and then progressing to nausea. The patient is chronically on prednisone therapy and he has been so ill he has not taken his prednisone for the last 2 days is also noted that the patient's had a persistent cough for about 6 months he saw his leaflet distributor, Dr. Harrison, who increased prednisone therapy and his cough remitted however as prednisone return to his normal arthritic dose of 5 his cough returned the patient has not had any chest pain recently has not had any increase abdominal girth or lower extremity edema or complaints of orthopnea. Patient does have a cardiac history of arrhythmia he takes chronic amiodarone therapy he also has listed a history of asthma for which he takes Pulmicort he is also therapeutically anticoagulated with Xarelto The patient presented with fairly significant distress to the ER with hypoxia only improved with BiPAP therapy his chest x-ray and CT scan are markedly abnormal with bilateral alveolar infiltrates I do not have a recent echocardiogram since 2010 that I can review he is afebrile white count is only 12 sed rates 38 he does have some transaminitis mild elevation of the BNP Patient has not had any recent travel or ill exposures Past Medical/Surgical History Medical Problems: (1) Acute respiratory failure with hypoxia (2) Allergic asthma (3) Atrial fibrillation (4) Bronchitis (5) Bronchitis (6) Cardiac catheterization (7) Cervical radiculopathy (8) Chemotherapy (9) Cholecystectomy (10) Environmental allergy (11) Fever (12) Fever (13) Hiatal hernia (14) History of malignant neoplasm of colon (15) Hypertension (16) Irritable colon (17) Partial colectomy (18) Pneumonitis (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 (20) Rapid atrial fibrillation (21) Sciatica Family History He states his family is generally well and has no significant medical conditions Social History Smoking Status: Former Smoker Alcohol Use: socially Drug Use: none Marital Status: Housing status: lives with family Occupational Status: retired Immunizations History of Influenza Vaccine: Yes Influenza Vaccine Date: Jun 02, 2012 History of Tetanus Vaccine?: Yes History of Pneumococcal: yes - within the past 5 years Pneumococcal Date: Mar 01, 2009 History of Hepatitis B Vaccine: No Allergies Coded Allergies: Cat Dander (Verified Allergy, Intermediate, asthma, hives, 01/04/18) Dust (Verified Allergy, Intermediate, asthma, hives, 01/04/18) Grass (Verified Allergy, Intermediate, asthma,hives, 01/04/18) Molds & Smuts (Verified Allergy, Intermediate, asthma,hives, 01/04/18) Sulfa Antibiotics (Verified Allergy, Intermediate, hives, 01/04/18) Home Medications Scheduled Amiodarone Hcl (Cordarone), 200 MG PO DAILY Budesonide (Pulmicort Flexhaler), 1-2 PUFFS INH QAM Ciprofloxacin (Ciprofloxacin HCl), 1 TAB PO UD Clobetasol Propionate (Temovate), 1 APPLN TOP BID Clotrimazole (Lotrimin 1%), DIRECTED Fexofenadine Hcl (Yenni Allergy), 180 MG PO QAM Ketoconazole (Topical) (Ketoconazole), 1 APPLN TOP 2XWK Methylcellulose (Laxative) (Citrucel Fiber Laxative), DIRECTED Multiple Vitamins W/ Minerals (Preservision Areds), 1 CAP PO BID Olopatadine Hydrochloride (Pataday), 1 DROPS OP DIRECTED Prednisone (Prednisone), 5 MG PO DAILY Ranibizumab (Lucentis), DIRECTED Rivaroxaban (Xarelto), 20 MG PO QAM Sucralfate (Carafate), 10 ML PO QID Triamcinolone Acet (Aristocort 0.1%), DIRECTED [Lotrimin HCT 1%], 1 APPLN TOP PRN Scheduled PRN Acetaminophen Tab (Tylenol), 2 TABS PO Q6 PRN for Pain Hyoscyamine Sulfate (Levsin), 2 TABS PO DAILY PRN for ABDOMINAL CRAMPING Review of Systems ROS: well nourished well developed. In fairly significant distress No double vision blurry vision No problems with speech or swallowing No palpitations, chest pain or pressure Marked dyspnea and tachypnea with accessory muscle use No abdominal pain has had intermittent nausea vomiting at home without diarrhea or changes in appetite or weight Has had burning urine and urine frequency but no changes in color Chronic daily focal joint pain but no muscle pain No skin rashes or oral lesions No unusual bruising or bleeding No focused back pain or numbness or loss of strength No changes in memory or confusion Physical Exam Vital Signs Date Time Temp Pulse Resp B/P (MAP) Pulse Ox O2 Delivery O2 Flow Rate FiO2 01/04/18 10:25 70 16 128/66 93 Nasal Cannula 5.0 01/04/18 09:49 89 Nasal Cannula 4.0 01/04/18 09:35 75 01/04/18 09:23 36.8 76 28 122/60 71 Room Air General Appearance: WD/WN, + severe distress Eyes: normal inspection, sclerae normal ENT: normal ENT inspection, pharynx normal Neck: supple, no JVD Respiratory/Chest: + decreased breath sounds, + accessory muscle use, + rhonchi Cardiovascular: no murmur, + tachycardia Abdomen/GI: normal bowel sounds, non tender, soft Back: no CVA tenderness, no muscle spasm, normal range of motion Extremities/Musculoskelatal: normal range of motion, + pedal edema (Trace) Neurologic/Psych: alert, oriented x 3 Skin: normal color, warm/dry, no rash, + rash Diagnostics Laboratory Results Results Past 24 Hours Test 01/04/18 09:50 01/04/18 09:56 01/04/18 10:15 01/04/18 10:18 Range/Units White Blood Count 12.80 4.8-10.8 K/uL Red Blood Count 4.27 4.7-6.1 M/uL Hemoglobin 13.5 14.0-18.0 g/dL Hematocrit 38.3 42-52 % Mean Corpuscular Volume 89.7 80-100 fL Mean Corpuscular Hemoglobin 31.6 25-34 pg Mean Corpuscular Hemoglobin Concent 35.2 32-36 g/dl Platelet Count 186 130-400 K/uL Mean Platelet Volume 11.1 7.4-10.4 fL Neutrophils (%) (Auto) 84.4 % Lymphocytes (%) (Auto) 3.8 % Monocytes (%) (Auto) 11.1 % Eosinophils (%) (Auto) 0.1 % Basophils (%) (Auto) 0.2 % Neutrophils # (Auto) 10.82 1.4-6.5 K/uL Lymphocytes # (Auto) 0.48 1.2-3.4 K/uL Monocytes # (Auto) 1.42 0.11-0.59 K/uL Eosinophils # (Auto) 0.01 0-0.5 K/uL Basophils # (Auto) 0.02 0-0.2 K/uL RDW Standard Deviation 47.3 36.4-46.3 fL RDW Coefficient of Variation 14.3 11.5-14.5 % Immature Granulocyte % (Auto) 0.4 % Immature Granulocyte # (Auto) 0.05 0.00-0.02 K/uL Erythrocyte Sedimentation Rate 38 0-14 mm/hr Prothrombin Time 16.3 9.0-12.0 SECONDS Prothromb Time International Ratio 1.6 0.9-1.1 Activated Partial Thromboplast Time 50.9 21.0-31.0 SECONDS Partial Thromboplastin Ratio 2.0 Sodium Level 130 136-145 mmol/L Potassium Level 4.4 3.5-5.1 mmol/L Chloride Level 97 98-107 mmol/L Carbon Dioxide Level 22 21-32 mmol/L Anion Gap 12.0 3-11 mmol/L Blood Urea Nitrogen 29 7-18 mg/dl Creatinine 1.53 0.60-1.40 mg/dl Est Creatinine Clear Calc Drug Dose 41.6 ml/min Estimated GFR () 48.7 Estimated GFR (Non- 42.0 BUN/Creatinine Ratio 19.2 10-20 Random Glucose 153 70-99 mg/dl Calcium Level 8.0 8.5-10.1 mg/dl Phosphorus Level 2.6 2.5-4.9 mg/dl Magnesium Level 1.8 1.8-2.4 mg/dl Total Bilirubin 1.1 0.2-1 mg/dl Aspartate Amino Transf (AST/SGOT) 132 15-37 U/L Alanine Aminotransferase (ALT/SGPT) 108 12-78 U/L Alkaline Phosphatase 91 45-117 U/L Total Creatine Kinase 132 39-308 U/L Creatine Kinase MB 2.3 0.5-3.6 ng/ml Creatine Kinase MB Ratio 1.7 0-3.0 Troponin I 0.016 0-0.045 ng/ml C-Reactive Protein 30.00 0-0.29 mg/dl Pro-B-Type Natriuretic Peptide 3001 0-1800 pg/ml Total Protein 6.6 6.4-8.2 gm/dl Albumin 2.6 3.4-5.0 gm/dl Globulin 4.0 2.5-4.0 gm/dl Albumin/Globulin Ratio 0.6 0.9-2 Lipase 112 73-393 U/L Bedside Lactic Acid Venous 4.77 0.90-1.70 mmol/L Urine Color DK YELLOW Urine Appearance CLEAR CLEAR Urine pH 5.0 4.5-7.5 Urine Specific Henderson 1.039 1.000-1.030 Urine Protein 1+ NEG Urine Glucose (UA) NEG NEG Urine Ketones TRACE NEG Urine Occult Blood NEG NEG Urine Nitrite POS NEG Urine Bilirubin NEG NEG Urine Urobilinogen NEG NEG Urine Leukocyte Esterase NEG NEG Urine WBC (Auto) 1-5 0-5 /hpf Urine RBC (Auto) 0-4 0-4 /hpf Urine Hyaline Casts (Auto) 1-5 0-5 /lpf Urine Epithelial Cells (Auto) 10-20 0-5 /lpf Urine Bacteria (Auto) NEG NEG Urine Crystals AMORPHOUS SEDIMENT NONE PRSENT Urine Pathogenic Casts 0-3 GRANULAR CASTS 0 /lpf Venous Blood pH 7.44 7.36-7.41 Venous Blood Partial Pressure CO2 35 38.0-50.0 mmHg Venous Blood Partial Pressure O2 29 mmHg Venous Blood HCO3 23 mmol/L Venous Blood Oxygen Saturation < 60.0 % Venous Blood Base Excess -0.5 mEq/L Test 01/04/18 10:21 Range/Units Bedside Hemoglobin 13.3 14.0-18.0 g/dl Bedside Hematocrit 39 42-52 % Bedside Sodium 130 135-144 mEq/L Bedside Potassium 4.3 3.3-5.0 mEq/L Bedside Chloride 94 101-112 mEq/L Bedside Total CO2 21 24-31 mEq/l Anion Gap 20.0 16-25 mmol/L Bedside Blood Urea Nitrogen 29 7-18 mg/dl Bedside Creatinine 1.2 0.6-1.3 mg/dl Bedside Glucose (other) 161 70-99 mg/dl Bedside Ionized Calcium (Carla) 1.08 1.12-1.32 mmol/l Microbiology Results 01/04/18 Blood Culture, Received Pending 01/04/18 Blood Culture, Received Pending other (Bilateral alveolar infiltrates also confirmed on CT scan with no PE seen) Normal EKG Impression Assessment and Plan 82-year-old male with acute respiratory failure with profound hypoxia requiring BiPAP to rescue his breathing found to have bilateral alveolar infiltrates of undetermined etiology on imaging Acute respiratory failure with hypoxia the patient will be on BiPAP therapy and supplemental oxygen to improve his oxygenation and respiratory distress Potentially this being heart failure not clear whether systolic or diastolic stat echocardiogram will be undertaken diuresis with Lasix therapy offering a Flynn interrogating pacemaker and trending troponins Possibility of infectious etiology, atypical and unusual organisms might be suspected given his chronic immunosuppression blood cultures are obtained patient was administered Zosyn in the ER he will be placed on triple antibiotic coverage of Vanco cefepime and Levaquin. His initial lactic acid is elevated this will be repeated sputum culture will be attempted to be obtained. His prehospital concerns for dysuria will also be evaluated by a urine culture Pneumonitis could be concerned as given the patient is on amiodarone I will discuss with cardiology regarding a substitute for this drug if need be, he will be on stress dose steroids for his previous adrenal suppression from daily prednisone use that should cover any inflammatory pneumonitis at this point time consideration for pulmonary evaluation is also strongly considered Atrial fibrillation, patient be maintained on Xarelto loss of procedure would be required backup beta-radha therapy will be utilized if tachycardia becomes an issue Transaminitis, this could be multifactorial from congestion if heart failure would be proven or from inflammation will trend these daily Elevated INR on presentation could be related to the liver irritation once again this will be followed in a day and augmented with vitamin K therapy if needed DVT prevention at this time is Xarelto however if this is stopped we may consider using a another chemical means Resuscitation Status VTE Prophylaxis Will order VTE Prophylaxis: Yes
[2018-01-04] MEDS ORDERED: VANCOMYCIN IV 1,750 MG in SODIUM CHLORIDE 0.9% 500ML 500 ML IV ONE (12:30)
--- NOTE | 2018-01-04 14:13 | Pharmacy Progress Note ---
Pharmacy Abx Initial Consult Date of Service January 04, 2018. Pharmacy Dosing Scope Date of Consult: 01/04/18 Consultation requested by: Dr. Combs Pharmacy is consulted to initiate Vancomycin IV dosing therapy, order appropriate labs and adjust drug dose/frequency. Subjective The patient is a 82 year old male admitted on January 04, 2018 at 11:46. Objective Height (Feet): 6 Height (Inches): 0.00 Weight (Kilograms): 85.000 Vital Signs (Past 12Hrs) Vital Signs Past 12 Hours Date Time Temp Pulse Resp B/P (MAP) Pulse Ox O2 Delivery O2 Flow Rate FiO2 01/04/18 13:00 70 24 130/88 96 01/04/18 12:56 70 20 130/88 96 BiPAP 60 01/04/18 11:52 36.6 71 32 151/85 Non-Rebreather 01/04/18 11:48 71 97 50 01/04/18 11:47 71 18 145/76 99 BiPAP 80 01/04/18 10:25 70 16 128/66 93 Nasal Cannula 5.0 01/04/18 09:49 89 Nasal Cannula 4.0 01/04/18 09:35 75 01/04/18 09:23 36.8 76 28 122/60 71 Room Air Lab Results (24Hrs) Laboratory Tests (24 Hours) Test 01/04/18 09:50 01/04/18 13:00 C-Reactive Protein 30.00 mg/dl (0-0.29) H Erythrocyte Sedimentation Rate 38 mm/hr (0-14) H White Blood Count 12.80 K/uL (4.8-10.8) H Red Blood Count 4.27 M/uL (4.7-6.1) L Hemoglobin 13.5 g/dL (14.0-18.0) L Hematocrit 38.3 % (42-52) L Mean Corpuscular Volume 89.7 fL (80-100) Mean Corpuscular Hemoglobin 31.6 pg (25-34) Mean Corpuscular Hemoglobin Concent 35.2 g/dl (32-36) Platelet Count 186 K/uL (130-400) Mean Platelet Volume 11.1 fL (7.4-10.4) H Neutrophils (%) (Auto) 84.4 % Lymphocytes (%) (Auto) 3.8 % Monocytes (%) (Auto) 11.1 % Eosinophils (%) (Auto) 0.1 % Basophils (%) (Auto) 0.2 % Neutrophils # (Auto) 10.82 K/uL (1.4-6.5) H Lymphocytes # (Auto) 0.48 K/uL (1.2-3.4) L Monocytes # (Auto) 1.42 K/uL (0.11-0.59) H Eosinophils # (Auto) 0.01 K/uL (0-0.5) Basophils # (Auto) 0.02 K/uL (0-0.2) Total Creatine Kinase 132 U/L (39-308) Micro Results Date/Time Source Procedure Growth Status 01/04/18 10:00 Blood Blood Culture Pending Received 01/04/18 09:50 Blood Blood Culture Pending Received Risk Factors for Resistance * Immunocompromised (chronic steroid therapy, chemotherapy, immunomodulators) * Antimicrobial use within the last 90 days: Cipro x 2 days [employer] Assessment & Plan Assessment 82 year old male initiated on IV Levaquin, Cefepime, and Vancomycin for pneumonia. Scr elevated, will need to renally dose adjust antibiotics Plan Vancomycin IV * Loading dose: 1,750 mg (20 mg/kg) per hospitalist order, then, * Maintenance dose: 1,250 mg IV (15 mg/kg) every 18 hours * Goal trough level for Pulmonary : 15 to 20 mcg/mL * Trough level ordered for 01/06/18 @ 1800 Pharmacy will continue to follow and will adjust dose/frequency as necessary. Thank you.
--- NOTE | 2018-01-04 14:36 | ECHOCARDIOGRAM REPORT ---
*NOTICE TO RECEIVING [employer] This information is strictly Confidential and protected under [place] law. [place] law prohibits you from making any further disclosure of this information unless further disclosure is expressly permitted by the written consent of the person to whom it pertains or is authorized by law. A general authorization for the release of medical or other information is not sufficient for this purpose. Hospital accepts no responsibility if the information is made available to any other person, INCLUDING THE PATIENT. Interpretation Summary * Name: CHRIS FERGUSON Study Date: 01/04/2018 01:22 PM BP: 130/88 mmHg * Patient Location: C.2E\S\E201\S\1 HR: 74 * : 1935 (M/d/yyyy) Gender: Male Height: 72 in * Age: 82 yrs Ethnicity: CA Weight: 180 lb * Ordering Physician: Gurvinder Combs * Referring Physician: Self, Referred * Performed By: Luzmaria Maddox RCS * * Reason For Study: CHF * BSA: 2.0 m2 * -- Conclusions -- * Left ventricular systolic function is normal. * No regional wall motion abnormalities noted. * Ejection Fraction = 55-60%. * There is mild concentric left ventricular hypertrophy. * Grade I diastolic dysfunction, (abnormal relaxation pattern). * There is mild mitral regurgitation. * There is mild tricuspid regurgitation. Procedure Details * A complete two-dimensional transthoracic echocardiogram was performed (2D, M-mode, Doppler and color flow Doppler). Left Ventricle * The left ventricle is normal in size. * There is mild concentric left ventricular hypertrophy. * Left ventricular systolic function is normal. * Ejection Fraction = 55-60%. * No regional wall motion abnormalities noted. Right Ventricle * The right ventricle is grossly normal size. * There is a pacemaker lead in the right ventricle. * The right ventricular systolic function is normal as assessed by tricuspid annular plane systolic excursion (TAPSE) (normal >1.5 cm). Atria * The left atrium is borderline dilated. * The right atrium is mild to moderately dilated. * No ASD detected; PFO is not assessed. Mitral Valve * The mitral valve is grossly normal. * There is no mitral valve stenosis. * There is mild mitral regurgitation. Tricuspid Valve * The tricuspid valve is not well visualized, but is grossly normal. * There is mild tricuspid regurgitation. Aortic Valve * The aortic valve is trileaflet. * The aortic valve opens well. * No hemodynamically significant valvular aortic stenosis. * Trace aortic regurgitation. Pulmonic Valve * The pulmonary valve is not well seen, but the Doppler examination is normal without significant regurgitation or stenosis. Great Vessels * The aortic root is normal size. * The pulmonary is not well visualized. Pericardium/Pleural * There is no pericardial effusion. Great Vessels * Dilated inferior vena cava with reduced collapsability with sniff indicates an elevated right atrial pressure of 15 mmHg Left Ventricular Diastolic Function * Grade I diastolic dysfunction, (abnormal relaxation pattern). MMode 2D Measurements and Calculations IVSd 1.4 cm IVSs 1.7 cm LVIDd 4.0 cm LVIDs 3.3 cm LVPWd 1.2 cm LVPWs 1.5 cm IVS/LVPW 1.1 FS 17.8 % EDV(Teich) 71.6 ml ESV(Teich) 44.7 ml EF(Teich) 37.6 % EDV(cubed) 65.8 ml ESV(cubed) 36.5 ml EF(cubed) 44.5 % % IVS thick 24.2 % % LVPW thick 17.9 % LV mass(C)d 188.8 grams LV mass(C)dI 92.7 grams/m\S\2 LV mass(C)s 195.0 grams LV mass(C)sI 95.7 grams/m\S\2 SV(Teich) 26.9 ml SI(Teich) 13.2 ml/m\S\2 SV(cubed) 29.3 ml SI(cubed) 14.4 ml/m\S\2 Ao root diam 2.5 cm Ao root area 5.0 cm\S\2 ACS 1.3 cm LA dimension 4.2 cm LA/Ao 1.7 LVOT diam 2.0 cm LVOT area 3.3 cm\S\2 LVAd ap4 23.0 cm\S\2 LVLd ap4 6.0 cm EDV(MOD-sp4) 71.5 ml EDV(sp4-el) 74.3 ml LVAs ap4 16.1 cm\S\2 LVLs ap4 5.6 cm ESV(MOD-sp4) 37.8 ml ESV(sp4-el) 39.6 ml EF(MOD-sp4) 47.2 % EF(sp4-el) 46.8 % LVAd ap2 23.3 cm\S\2 LVLd ap2 6.9 cm EDV(MOD-sp2) 63.3 ml EDV(sp2-el) 67.0 ml LVAs ap2 13.7 cm\S\2 LVLs ap2 5.0 cm ESV(MOD-sp2) 32.1 ml ESV(sp2-el) 31.6 ml EF(MOD-sp2) 49.3 % EF(sp2-el) 52.8 % LVLd %diff 12.3 % EDV(MOD-bp) 70.0 ml LVLs %diff -10.65 % ESV(MOD-bp) 36.7 ml EF(MOD-bp) 47.6 % SV(MOD-sp4) 33.7 ml SI(MOD-sp4) 16.6 ml/m\S\2 SV(MOD-sp2) 31.2 ml SI(MOD-sp2) 15.3 ml/m\S\2 SV(MOD-bp) 33.3 ml SI(MOD-bp) 16.3 ml/m\S\2 SV(sp4-el) 34.7 ml SI(sp4-el) 17.1 ml/m\S\2 SV(sp2-el) 35.4 ml SI(sp2-el) 17.4 ml/m\S\2 Doppler Measurements and Calculations MV E max alyssa 79.3 cm/sec MV A max alyssa 36.1 cm/sec MV E/A 2.2 MV P1/2t max alyssa 98.1 cm/sec MV P1/2t 67.9 msec MVA(P1/2t) 3.2 cm\S\2 MV dec slope 423.1 cm/sec\S\2 MV dec time 0.16 sec Ao V2 max 105.3 cm/sec Ao max PG 4.4 mmHg Ao max PG (full) 2.5 mmHg MICHAEL(V,A) 2.2 cm\S\2 MICHAEL(V,D) 2.2 cm\S\2 AI max alyssa 411.4 cm/sec AI max PG 68.4 mmHg AI dec slope 243.6 cm/sec\S\2 AI P1/2t 494.6 msec LV V1 max PG 2.0 mmHg LV V1 max 70.1 cm/sec MR max alyssa 406.4 cm/sec MR max PG 66.1 mmHg PA V2 max 73.2 cm/sec PA max PG 2.1 mmHg TR max alyssa 339.7 cm/sec
[2018-01-04] MEDS ORDERED: FUROSEMIDE INJ 40 MG in SYRINGE 0 ML IV SCH (14:45)
[2018-01-04] MEDS ORDERED: LEVOFLOXACIN / D5W 750 MG in PREMIXED IN D5W 150 ML IV SCH (16:00)
[2018-01-04] MEDS: RIVAROXABAN 10 MG TAB PO SCH (16:09)
[2018-01-04] MEDS: HYDROCORTISONE IV 100 MG in SYRINGE 0 ML IV SCH ×2 (16:09→23:28)
[2018-01-04] MEDS: CEFEPIME IV 2,000 MG in SYRINGE 7.5 ML IV SCH (16:09)
[2018-01-04] MEDS ORDERED: QUETIAPINE FUMARATE 25 MG TAB PO PRN (18:00)
[2018-01-04] MEDS: MoRPHine SULFATE 2 MG/ML CARP IV PRN (18:03)
[2018-01-04] MEDS: MoRPHine SULFATE 4 MG/ML 1 ML CARP\\VIAL IV PRN (18:39)
[2018-01-04] MEDS: METHYLCELLULOSE POWDER 454 GM JAR PO SCH ×2 (19:21→20:19)
[2018-01-05] VITALS (10 sets, daily range): BP systolic 128–152; BP diastolic 69–81; PULSE 70–73; TEMP 36.4–37.1; O2SAT 91–99
[2018-01-05] MEDS: CEFEPIME IV 2,000 MG in SYRINGE 7.5 ML IV SCH ×2 (03:47→15:34)
[2018-01-05] MEDS: VANCOMYCIN IV 1,250 MG in SODIUM CHLORIDE 0.9% 250ML 250 ML IV SCH ×2 (05:29→23:24)
[2018-01-05 07:12] LABS: HEMATOCRIT 35.4 % (42-52); HEMOGLOBIN 12.8 g/dL (14.0-18.0); MEAN CELL VOLUME 89.2 fL (80-100); MEAN CORPUSCULAR HEMOGLOBIN 32.2 pg (25-34); MEAN CORPUSCULAR HGB CONC 36.2 g/dl (32-36); MEAN PLATELET VOLUME 10.6 fL (7.4-10.4); PLATELET COUNT 194 K/uL (130-400); RED CELL DISTRIBUTION WIDTH CV 14.2 % (11.5-14.5); RED CELL DISTRIBUTION WIDTH SD 46.6 fL (36.4-46.3); WHITE BLOOD COUNT 11.03 K/uL (4.8-10.8)
[2018-01-05] MEDS: HYDROCORTISONE IV 100 MG in SYRINGE 0 ML IV SCH ×3 (07:32→23:24)
[2018-01-05] MEDS: BUDESONIDE 90 MCG INH INH SCH (07:32)
[2018-01-05] MEDS: RIVAROXABAN 10 MG TAB PO SCH (07:33)
[2018-01-05 07:48] LABS: ALBUMIN 2.2 gm/dl (3.4-5.0); ALT/SGPT 97 U/L (12-78); AST/SGOT 88 U/L (15-37); BLOOD UREA NITROGEN 24 mg/dl (7-18); CALCIUM 8.3 mg/dl (8.5-10.1); CARBON DIOXIDE 24 mmol/L (21-32); CREATININE 1.26 mg/dl (0.60-1.40); GLUCOSE 134 mg/dl (70-99); POTASSIUM 4.4 mmol/L (3.5-5.1); SODIUM 134 mmol/L (136-145)
[2018-01-05 07:53] LABS: ALKALINE PHOSPHATASE 93 U/L (45-117); TOTAL PROTEIN 6.4 gm/dl (6.4-8.2)
--- NOTE | 2018-01-05 09:37 | DIAGNOSTIC IMAGING REPORT ---
CHEST ONE VIEW PORTABLE HISTORY: 82 years-old Male EVAL MULTIFOCAL PNX follow-up study to assess alveolar opacities. History of sepsis. COMPARISON: Chest radiograph 01/04/2018, CTA chest 01/04/2018 TECHNIQUE: Portable AP view of the chest FINDINGS: Cardiac silhouette is mildly enlarged, unchanged. Left subclavian pacer appears stable. No pneumothorax or large pleural effusion. Redemonstration of multifocal multisegmental mixed interstitial and alveolar opacities which appear unchanged from comparison. Bones of the chest appear grossly intact. Degenerative changes of the shoulders and spine. IMPRESSION: Stable exam with unchanged multifocal multisegmental distribution of mixed interstitial and alveolar opacities suggesting noncardiogenic pulmonary edema or multifocal pneumonia. The above report was generated using voice recognition software. It may contain grammatical, syntax or spelling errors. Electronically signed by: Josue Jacobs M.D. 01/05/2018 9:35 AM Dictated Date/Time: 01/05/2018 9:33 AM
[2018-01-05] MEDS ORDERED: METOPROLOL TARTRATE 25 MG TAB PO SCH (11:45)
[2018-01-05] MEDS ORDERED: FUROSEMIDE INJ 40 MG in SYRINGE 0 ML IV ONE (12:00)
[2018-01-05] MEDS ORDERED: NURSING VERBAL MED ORDER ONE (13:00)
[2018-01-05] MEDS: LEVOFLOXACIN / D5W 750 MG in PREMIXED IN D5W 150 ML IV SCH (15:34)
--- NOTE | 2018-01-05 15:53 | Progress Note ---
Subjective Date of Service: January 05, 2018. Subjective pt is feeling improved but still requiring higher doses of oxygen Problem List Medical Problems: (1) Bilateral pneumonia Status: Acute (2) Hypoxia Status: Acute (3) Lactic acidosis Status: Acute Review of Systems Constitutional: No fever, No chills, No weakness, No fatigue Respiratory: No cough, No shortness of breath, No dyspnea on exertion Cardiac: No chest pain, No PND Abdomen: No pain, No nausea, No vomiting Male : No dysuria, No incontinence Psychiatric: No depression symptoms, No anhedonism, No anxiety Objective Vital Signs Date Time Temp Pulse Resp B/P (MAP) Pulse Ox O2 Delivery O2 Flow Rate FiO2 01/05/18 12:00 Non-Rebreather 15.0 01/05/18 11:15 36.4 72 18 140/81 (100) 93 Non-Rebreather 15.0 01/05/18 08:00 BiPAP 60 01/05/18 07:20 72 99 60 01/05/18 06:39 36.8 72 23 147/75 (99) 95 BiPAP 60 01/05/18 04:00 BiPAP 60 01/05/18 03:20 36.5 73 26 137/72 (93) 98 BiPAP 60 01/05/18 01:48 70 97 60 01/05/18 00:01 BiPAP 60 01/04/18 23:17 36.4 72 28 135/65 (88) 97 BiPAP 60 01/04/18 22:15 72 95 60 01/04/18 20:00 BiPAP 60 01/04/18 19:30 80 92 60 01/04/18 19:18 37.0 80 33 150/84 (106) 95 BiPAP 01/04/18 16:06 37.4 84 24 126/86 (99) 94 BiPAP 01/04/18 16:05 79 95 60 Physical Exam General Appearance: WD/WN, + moderate distress Neck: supple, no JVD Respiratory/Chest: + respiratory distress, + decreased breath sounds, + accessory muscle use Cardiovascular: no murmur, + tachycardia Abdomen: normal bowel sounds, non tender, soft Extremities: no pedal edema, no calf tenderness Neurologic/Psychiatric: alert, oriented x 3 Laboratory Results Last 24 Hours Test 01/04/18 19:05 01/05/18 00:38 01/05/18 06:58 Troponin I 0.049 ng/ml 0.031 ng/ml < 0.015 ng/ml White Blood Count 11.03 K/uL Red Blood Count 3.97 M/uL Hemoglobin 12.8 g/dL Hematocrit 35.4 % Mean Corpuscular Volume 89.2 fL Mean Corpuscular Hemoglobin 32.2 pg Mean Corpuscular Hemoglobin Concent 36.2 g/dl RDW Standard Deviation 46.6 fL RDW Coefficient of Variation 14.2 % Platelet Count 194 K/uL Mean Platelet Volume 10.6 fL Sodium Level 134 mmol/L Potassium Level 4.4 mmol/L Chloride Level 103 mmol/L Carbon Dioxide Level 24 mmol/L Anion Gap 7.0 mmol/L Blood Urea Nitrogen 24 mg/dl Creatinine 1.26 mg/dl Est Creatinine Clear Calc Drug Dose 50.5 ml/min Estimated GFR () 61.6 Estimated GFR (Non- 53.1 BUN/Creatinine Ratio 18.9 Random Glucose 134 mg/dl Calcium Level 8.3 mg/dl Total Bilirubin 0.9 mg/dl Aspartate Amino Transf (AST/SGOT) 88 U/L Alanine Aminotransferase (ALT/SGPT) 97 U/L Alkaline Phosphatase 93 U/L Total Protein 6.4 gm/dl Albumin 2.2 gm/dl Globulin 4.2 gm/dl Albumin/Globulin Ratio 0.5 Assessment and Plan 82-year-old male with acute respiratory failure with profound hypoxia requiring BiPAP to rescue his breathing found to have bilateral alveolar infiltrates of undetermined etiology on imaging Acute respiratory failure with hypoxia the patient will be on BiPAP therapy and supplemental oxygen to improve his oxygenation and respiratory distress, he continues to require high flow levels Did improve with diuresis with Lasix therapy, Echo shows preserved EF, interrogating pacemaker and trending troponin are unrevealing Possibility of infectious etiology, atypical and unusual organisms might be suspected given his chronic immunosuppression blood cultures are obtained patient was administered Zosyn in the ER he will be placed on triple antibiotic coverage of Vanco cefepime and Levaquin. His initial lactic acid is elevated this was repeated and was lower sputum culture will be attempted to be obtained. His prehospital concerns for dysuria will also be evaluated by a urine culture Pneumonitis could be concerned as given the patient is on amiodarone, will be on stress dose steroids for his previous adrenal suppression from daily prednisone use that should cover any inflammatory pneumonitis at this point time , pulmonary evaluation pending Atrial fibrillation, patient be maintained on Xarelto, pt states he has not tolerated metoprolol in the past and did refuse it 5/6 Transaminitis, this could be multifactorial from congestion if heart failure would be proven or from inflammation Elevated INR on presentation could be related to the liver irritation once again this will be followed in a day and augmented with vitamin K therapy if needed DVT prevention at this time is Xarelto however if this is stopped we may consider using a another chemical means
--- NOTE | 2018-01-05 18:13 | Pulmonary Consultation ---
History General Date of Service: January 05, 2018. Stated Complaint: Acute Respiratory Failure With Hypoxia HPI The patient is a 82 year old male who presents to [facility] with complaints of Acute Respiratory Failure With Hypoxia. The patient's primary care provider is No Doctor, Assigned. 82-year-old gentleman admitted with hypoxic respiratory insufficiency and abnormal CT imaging/diffuse bilateral infiltrative/ground-glass changes. The patient has a significant PmHx: Atrial fibrillation/multiple cardioversion/ ablation x2/pacer, chronic allergic rhinitis, possible asthma and notable long- term urticaria. He has been long-time patient of Dr. Julio C Voss but has been noting a chronic dry cough for the last 6 months that does appear to be helps with increasing doses of steroids. He is also patient of Dr. 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 Patient notes that the prednisone both helps the swelling in the fingers as well as his chronic cough. He define this cough is nonproductive, no hemoptysis any also denies fever, chills, B type symptoms, unintentional weight loss, high-resolution exposures, pleurisy or classic cardiac chest pain. The patient had been experiencing 4 days of progressive illness with dysuria for which she was treated with antibiotics by his PCP but then noted on the Saturday evening prior to admission severe shortness of breath requiring ED presentation. In the ED the patient's SaO2 was notably at 71 % on room air which was quickly supported with BiPAP and oxygen support. During our conversation the patient continues to note dyspnea on exertion and was requiring high-flow oxygen supplementation. Current workup WBC 13 K mildly elevated neutrophil number Creatinine on arrival 1.53 now down to 1.26 ESR: 38 VBG 7.44/35 corrected to 7.48/29 Lactic acid: 2.2 Troponin I: Highest 0.049 value Total bilirubin: 1.1 AST: 132 ALT: 108 CRP: 30 BNP: 3001 Urinalysis: Nitrate positive, amorphous sediment INR: 1.6 PT: 16.3 APTT: 50.9 Pending: Urine Legionella antigen, blood cultures x2 Echocardiogram: Final results pending but EF 55-60 %, grade 1 diastolic dysfunction, TAPSE >1.5cm, left, dilated IVC with reduced collapsibility Current inpatient pulmonary medications 1. Levofloxacin 750 mg daily 2. Budesonide 2 puffs q.a.m. 3. Vancomycin IV 4. Xarelto 20 mg daily 5. Cefepime 2 grams Q 12 6. Hydrocortisone 100 mg q.8 hours Previous workup Echocardiogram 07/16/2016: EF 60 65%, borderline left atrial enlargement, IVC within normal limits Spirometry 12/06/2010: Mild restrictive ventilatory process FEV1 73% PFT 01/01/2018: Mild OVD EF 67%, reduced TLC at 67%, moderately reduced diffusion capacity 41% PmHx: 1. Actinic keratosis 2. Atrial fibrillation/flutter (Xarelto) onset December 2010--chemically converted , successful ablation November 19, 2017 (amiodarone dose was decreased at that time 400 mg daily to 200 mg) dual chamber pacemaker/rate set at 70 3. Allergic rhinitis 4. COPD (FEV1: 67%) 5. Asthma 6. Atrial flutter 7. Cardiac pacemaker 8. Conjunctivitis, allergic 9. Dermatitis 10. Essential hypertension 11. Hearing loss 12. Macular degeneration 13. History of basal cell carcinoma 14. History of SCC (squamous cell carcinoma) of skin 15. Macular degeneration 16. Permanent Pacemaker Type Dual-Chamber 17. Psoriasis 18. Urticaria 19. 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 History nasal polyps 21. History syncope and collapse 22. 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 Cholecystectomy Laparoscopic 2. Partial Colectomy 3. Pacemaker Type Dual-Chamber 4. Sinus Surgery 5. Cardiac ablation at [facility] 06/13/2017 6. Electro cardioversion May 06, 2013 7. Cardioversion 07/08/2017 8. Cardioversion 09/20/2017 9. Cardiac catheterization 10. Partial colectomy Family History 1. Allergic Rhinitis 2. Asthma 3. Colon Cancer 4. Coronary Artery Disease Social History Alcohol Use (History) Former smoker Marital History - Currently Retired From Work Outpatient medications 1. Amiodarone HCl - 200 MG Oral Tablet daily 2. Citrucel POWD; 3 Tbs daily 3. Compound Medication; HYDROCORTISONE 1% MIXED WITH EQUAL PARTS CLOTRIMAZOLE 1% APPLY BID TO AFFECTED 4. Desonide 0.05 % External Lotion; APPLY SPARINGLY TO AFFECTED AREA(S) TWICE DAILY 5. Fexofenadine HCl - 180 MG Oral Tablet; TAKE 1 TABLET DAILY 6. Hyoscyamine Sulfate 0.125 MG Oral Tablet; TAKE 2 TABLET Daily 7. Ketoconazole 2 % External Shampoo; APPLY DIRECTED NEEDED 8. Lotrimin CREA (Clotrimazole); APPLY INCH Daily 9. Lucentis 0.5 MG/0.05ML SOLN; 1 INJ EVERY 4-6 WEEKS 10. Pataday 0.2 % Ophthalmic Solution (Olopatadine HCl); INSTILL 1 DROP 11. PredniSONE 5 MG Oral Tablet; TAKE 1 TABLET DAILY 12. PreserVision AREDS CAPS; TAKE 2 CAPSULES DAILY 13. Pulmicort Flexhaler 90 MCG/ACT Inhalation Aerosol Powder Breath 14. Tylenol TABS 15. Xarelto 20 MG Oral Tablet; TAKE 1 TABLET BY MOUTH ONCE DAILY Allergies 1. Azulfidine TABS 2. Sulfa Drugs Historian: patient, EMS Review of Systems Constitutional: reports: malaise, weakness Eyes: reports: no symptoms ENT: reports: no symptoms Cardiovascular: reports: as stated in HPI Respiratory: reports: as stated in HPI Gastrointestinal: reports: as stated in HPI Genitourinary - Male: reports: as stated in HPI Musculoskeletal: reports: no symptoms Integumentary: reports: no symptoms Neurologic: reports: no symptoms Psychiatric: reports: anxiety Endocrine: no symptoms Hematologic / Lymphatic: no symptoms Allergic / Immunologic: no symptoms Past Medical History Past Medical History: Please refer to HPI Past Surgical History: Please refer to HPI Family History Heart disease Lung disease Please refer to HPI Social History Please refer to HPI Hx Tobacco Use In Past Year?: No (qit in 1969) Smoking Status: Former Smoker Marital status: Housing status: lives with family Occupational Status: retired Immunizations History of Influenza Vaccine: Yes Influenza Vaccine Date: Jun 02, 2012 History of Tetanus Vaccine?: Yes History of Pneumococcal: yes - within the past 5 years Pneumococcal Date: Mar 01, 2009 History of Hepatitis B Vaccine: No History of MDRO History of MDRO: No Allergies Coded Allergies: Cat Dander (Verified Allergy, Intermediate, asthma, hives, 01/04/18) Dust (Verified Allergy, Intermediate, asthma, hives, 01/04/18) Grass (Verified Allergy, Intermediate, asthma,hives, 01/04/18) Molds & Smuts (Verified Allergy, Intermediate, asthma,hives, 01/04/18) Sulfa Antibiotics (Verified Allergy, Intermediate, hives, 01/04/18) Current Medications Reported Home Medications Medications Dose Route/Sig Max Daily Dose Days Date Category Dose Instructions Yenni Allergy (Fexofenadine Hcl) 180 Mg Tab 180 Mg PO QAM 01/04/18 Reported Ciprofloxacin HCl (Ciprofloxacin) 500 Mg Tab 1 Tab PO UD 01/04/18 Reported GIVEN 28TABS FOR 14D SUPPLY, PT UNSURE HOW ITS PRESCRIBED Pulmicort Flexhaler (Budesonide) 60 Puffs/5400 Mcg Aero 1-2 Puffs INH QAM 01/04/18 Reported Temovate (Clobetasol Propionate) 0.05 % Oin 1 Appln TOP BID 09/20/17 Reported Aristocort 0.1% (Triamcinolone Acet) 90 Appln/30 Gm Cr DIRECTED 07/08/17 Reported Lotrimin 1% (Clotrimazole) 90 Appln/30 Gm Cr DIRECTED 07/08/17 Reported Lucentis (Ranibizumab) 0.5 Mg/0.05 Ml Inj DIRECTED 07/08/17 Reported Carafate (Sucralfate) 1 Gm/10 Ml Tennille 10 Ml PO QID 30 07/08/17 Reported Prednisone 5 Mg Tab 5 Mg PO DAILY 07/08/17 Reported Citrucel Fiber Laxative (Methylcellulose (Laxative)) 1 Pow Pow DIRECTED 07/08/17 Reported Cordarone (Amiodarone Hcl) 200 Mg Tab 200 Mg PO DAILY 07/08/17 Reported Pataday (Olopatadine Hydrochloride) 37 Drops/2.5 Ml Soln 1 Drops OP DIRECTED 30 07/08/17 Reported Preservision Areds (Multiple Vitamins W/ Minerals) 1 Cap Cap 1 Cap PO BID 12/09/15 Reported Ketoconazole (Ketoconazole (Topical)) 2 % Sha 1 Appln TOP 2XWK 12/09/15 Reported Tylenol (Acetaminophen) 325 Mg Tab 2 Tabs PO Q6 PRN 10/31/15 Reported Levsin (Hyoscyamine Sulfate) 0.125 Mg Tab 2 Tabs PO DAILY PRN 02/23/13 Reported Xarelto (Rivaroxaban) 20 Mg Tab 20 Mg PO QAM 02/23/13 Reported [Lotrimin HCT 1%] 1 Appln TOP PRN 1/8/12 Reported APPLY NEEDED FOR RASH. Physical Physical Exam Vital Signs: Date Time Temp Pulse Resp B/P (MAP) Pulse Ox O2 Delivery O2 Flow Rate FiO2 01/05/18 16:41 36.5 70 19 128/76 (93) 93 Oxymask 15.0 01/05/18 16:00 Mask 5.0 93 01/05/18 12:00 Non-Rebreather 15.0 01/05/18 11:15 36.4 72 18 140/81 (100) 93 Non-Rebreather 15.0 01/05/18 08:00 BiPAP 60 01/05/18 07:20 72 99 60 01/05/18 06:39 36.8 72 23 147/75 (99) 95 BiPAP 60 01/05/18 04:00 BiPAP 60 01/05/18 03:20 36.5 73 26 137/72 (93) 98 BiPAP 60 01/05/18 01:48 70 97 60 01/05/18 00:01 BiPAP 60 01/04/18 23:17 36.4 72 28 135/65 (88) 97 BiPAP 60 01/04/18 22:15 72 95 60 01/04/18 20:00 BiPAP 60 01/04/18 19:30 80 92 60 01/04/18 19:18 37.0 80 33 150/84 (106) 95 BiPAP General Appearance: WELL-APPEARING, mild distress Head: NORMOCEPHALIC, ATRAUMATIC Eyes: PERRLA, NO DISCHARGE, EOMI, SCLERAE NORMAL ENT: NORMAL EAR EXAM, NORMAL NASAL EXAM, NORMAL MOUTH EXAM, NORMAL THROAT EXAM Neck: NORMAL RANGE OF MOTION, NO TENDERNESS, TRACHEA MIDLINE, NO STRIDOR Respiratory: other (Bilateral rhonchi ) Cardiovasular: REGULAR RATE/RHYTHM, NORMAL S1S2, NO M/G/R, NO MURMUR, NO GALLOP Abdomen: NON TENDER, NORMAL BOWEL SOUNDS, NO REBOUND, NO MASSES, NO GUARDING Genitourinary - Male: EXTERNAL GENITALIA NORMAL Back: NORMAL INSPECTION, NO MIDLINE TENDERNESS, NO CVA TENDERNESS, NO PARAVERTEBRAL TTP Upper Extremities: NO EDEMA, NO DEFORMITY, NORMAL ROM Lower Extremities: NO EDEMA, NO DEFORMITY, NORMAL ROM Edema: Bilateral LE Pulses: carotid (R) (2+), carotid (L) (2+), dorsalis pedis (R) (2+), dorsalis pedis (L) (2+) Neuro: ALERT, ORIENTED x 3, NORMAL MOTOR EXAM, NORMAL SENSATION, NORMAL CEREBELLAR EXAM Reflexes: biceps (R) (2+), bicpes (L) (2+), patellar (R) (2+), patellar (L) (2+ ) Babinski Testing: right (downgoing), left (downgoing) Psychiatric: NORMAL AFFECT, NO SUICIDAL IDEATION Diagnostics Labs Results Past 24 Hours Test 01/04/18 19:05 01/05/18 00:38 01/05/18 06:58 Range/Units Troponin I 0.049 0.031 < 0.015 0-0.045 ng/ml White Blood Count 11.03 4.8-10.8 K/uL Red Blood Count 3.97 4.7-6.1 M/uL Hemoglobin 12.8 14.0-18.0 g/dL Hematocrit 35.4 42-52 % Mean Corpuscular Volume 89.2 80-100 fL Mean Corpuscular Hemoglobin 32.2 25-34 pg Mean Corpuscular Hemoglobin Concent 36.2 32-36 g/dl RDW Standard Deviation 46.6 36.4-46.3 fL RDW Coefficient of Variation 14.2 11.5-14.5 % Platelet Count 194 130-400 K/uL Mean Platelet Volume 10.6 7.4-10.4 fL Sodium Level 134 136-145 mmol/L Potassium Level 4.4 3.5-5.1 mmol/L Chloride Level 103 98-107 mmol/L Carbon Dioxide Level 24 21-32 mmol/L Anion Gap 7.0 3-11 mmol/L Blood Urea Nitrogen 24 7-18 mg/dl Creatinine 1.26 0.60-1.40 mg/dl Est Creatinine Clear Calc Drug Dose 50.5 ml/min Estimated GFR () 61.6 Estimated GFR (Non- 53.1 BUN/Creatinine Ratio 18.9 10-20 Random Glucose 134 70-99 mg/dl Calcium Level 8.3 8.5-10.1 mg/dl Total Bilirubin 0.9 0.2-1 mg/dl Aspartate Amino Transf (AST/SGOT) 88 15-37 U/L Alanine Aminotransferase (ALT/SGPT) 97 12-78 U/L Alkaline Phosphatase 93 45-117 U/L Total Protein 6.4 6.4-8.2 gm/dl Albumin 2.2 3.4-5.0 gm/dl Globulin 4.2 2.5-4.0 gm/dl Albumin/Globulin Ratio 0.5 0.9-2 Diagnostic Radiology Please refer to [facility] EKG Interpretation: NORMAL EKG Impression Assessment and Plan 82-year-old gentleman admitted for acute hypoxic respiratory insufficiency: 1. Hypoxemia: Patient's hypoxemia is associated with diffuse ground-glass/ interstitial changes appreciated on a CT. Over the past year to six-month the patient has appreciated swelling/Arthritis Feese of his fingers bilaterally as well as a chronic dry cough. This could suggest an under volume vascular are rheumatologic disorder a even possible scleroderma as the patient is not complaining of active dysphagia but barium swallow on 11/12/2017 did show esophageal dysmotility. These processes could be being held at base secondary to his chronic steroid use. The classic interstitial lung changes noted in the elderly would be UIP, sarcoidosis, connective tissue associated ILD ease, hypersensitivity and on classify oval diseases. This time will send off a hypersensitivity pneumonitis panel, vasculitic panel as well as rheumatologic panel for further evaluation. After the tested been collected I suggest we then initiate the patient on steroids at approximately 0.5 mg/kg of ideal body weight and monitor his response. Patient may require bronchoscopic evaluation the future if he does not respond to rule out underlying infectious etiology or possibly even surgical lung biopsy.
[2018-01-05] MEDS: METHYLCELLULOSE POWDER 454 GM JAR PO SCH (19:59)
[2018-01-05] MEDS: MoRPHine SULFATE 2 MG/ML CARP IV PRN (20:16)
[2018-01-05] MEDS: MoRPHine SULFATE 4 MG/ML 1 ML CARP\\VIAL IV PRN (23:26)
[2018-01-06] VITALS (10 sets, daily range): BP systolic 131–158; BP diastolic 63–79; PULSE 70–81; TEMP 36.1–36.8; O2SAT 89–97
[2018-01-06] MEDS: CEFEPIME IV 2,000 MG in SYRINGE 7.5 ML IV SCH ×2 (04:21→15:55)
[2018-01-06 04:24] LABS: HEMATOCRIT 34.3 % (42-52); HEMOGLOBIN 11.8 g/dL (14.0-18.0); MEAN CELL VOLUME 89.3 fL (80-100); MEAN CORPUSCULAR HEMOGLOBIN 30.7 pg (25-34); MEAN CORPUSCULAR HGB CONC 34.4 g/dl (32-36); MEAN PLATELET VOLUME 10.6 fL (7.4-10.4); PLATELET COUNT 211 K/uL (130-400); RED CELL DISTRIBUTION WIDTH CV 14.3 % (11.5-14.5); WHITE BLOOD COUNT 14.03 K/uL (4.8-10.8)
[2018-01-06 04:45] LABS: CALCIUM 8.3 mg/dl (8.5-10.1); CREATININE 1.3 mg/dl (0.60-1.40); POTASSIUM 3.9 mmol/L (3.5-5.1)
[2018-01-06] MEDS ORDERED: PROMETHAZINE HCL INJ 12.5 MG in SODIUM CHLORIDE 0.9% 50ML 50 ML IV STA (05:25)
[2018-01-06] MEDS: RIVAROXABAN 10 MG TAB PO SCH (07:51)
[2018-01-06] MEDS: HYDROCORTISONE IV 100 MG in SYRINGE 0 ML IV SCH (07:52)
[2018-01-06] MEDS: BUDESONIDE 90 MCG INH INH SCH (07:52)
--- NOTE | 2018-01-06 09:04 | Hospitalist Progress Note ---
Hospitalist Progress Note Date of Service January 06, 2018. Subjective Pt evaluation today including: conversation w/ patient, physical exam, chart review, lab review, review of studies Pain: None PO Intake: Good Voiding: wing catheter in place The patient was seen and examined this morning. Pt reports doing better now that bipap O2 settings are increased. He was feeling short of breath earlier this morning even while wearing bipap. No cough or sputum production. He denies any chest pain or tightness, no palpitations or flutter. Pt was administered additional lasix this morning which he thinks may also be helping sob. He has not been out of bed. Pt tolerated PO diet with break in bipap ok for lunch. He reports last BM was 2-3 days ago and uses metamucil at home and was given extra laxative this morning and feels as if he may have a BM soon. ROS: 6 point ROS reviewed and otherwise negative. Objective Vital Signs Date Time Temp Pulse Resp B/P (MAP) Pulse Ox O2 Delivery O2 Flow Rate FiO2 01/06/18 08:00 BiPAP 01/06/18 06:27 36.1 70 18 149/69 (95) 93 BiPAP 60 01/06/18 04:00 BiPAP 50 01/06/18 03:13 36.5 70 26 139/78 (98) 97 BiPAP 60 01/06/18 00:01 BiPAP 50 01/05/18 23:46 60 01/05/18 23:21 70 94 50 01/05/18 23:17 36.8 70 25 152/75 (100) 92 BiPAP 50 01/05/18 20:00 BiPAP 50 01/05/18 19:56 37.1 72 18 136/69 (91) 91 BiPAP 50 01/05/18 19:11 71 92 50 01/05/18 16:41 36.5 70 19 128/76 (93) 93 Oxymask 15.0 01/05/18 16:00 Mask 5.0 93 01/05/18 12:00 Non-Rebreather 15.0 01/05/18 11:15 36.4 72 18 140/81 (100) 93 Non-Rebreather 15.0 Physical Exam General Appearance: WD/WN, no apparent distress Eyes: PERRL, EOMI ENT: hearing grossly normal, + pertinent finding (pharynx not assess as on bipap) Neck: supple, no JVD Respiratory/Chest: no respiratory distress, no accessory muscle use, + pertinent finding (on bipap, O2 settings at 70 %, diminished breath sounds throughout, faint crackles at bases) Cardiovascular: regular rate, rhythm Abdomen: non tender, soft, + pertinent finding (hypoactive bowel sounds, wing cath draining clear yellow urine) Extremities: non-tender, no pedal edema, no calf tenderness Neurologic/Psychiatric: alert, normal mood/affect, oriented x 3 Skin: normal color, warm/dry Laboratory Results Last 24 Hours Test 01/05/18 18:25 01/05/18 19:45 01/06/18 04:07 Cyclic Citrullinated Peptide IgG Ab < 0.40 U/mL Urine Random Creatinine 54.4 mg/dl Urine Random Total Protein 47.8 mg/dl Urine Protein/Creatinine Ratio 0.9 White Blood Count 14.03 K/uL Red Blood Count 3.84 M/uL Hemoglobin 11.8 g/dL Hematocrit 34.3 % Mean Corpuscular Volume 89.3 fL Mean Corpuscular Hemoglobin 30.7 pg Mean Corpuscular Hemoglobin Concent 34.4 g/dl RDW Standard Deviation 47.0 fL RDW Coefficient of Variation 14.3 % Platelet Count 211 K/uL Mean Platelet Volume 10.6 fL Sodium Level 135 mmol/L Potassium Level 3.9 mmol/L Chloride Level 103 mmol/L Carbon Dioxide Level 27 mmol/L Anion Gap 5.0 mmol/L Blood Urea Nitrogen 28 mg/dl Creatinine 1.30 mg/dl Est Creatinine Clear Calc Drug Dose 48.9 ml/min Estimated GFR () 59.3 Estimated GFR (Non- 51.2 BUN/Creatinine Ratio 21.7 Random Glucose 138 mg/dl Calcium Level 8.3 mg/dl Total Bilirubin 0.8 mg/dl Aspartate Amino Transf (AST/SGOT) 58 U/L Alanine Aminotransferase (ALT/SGPT) 76 U/L Alkaline Phosphatase 110 U/L Total Protein 6.0 gm/dl Albumin 2.0 gm/dl Globulin 4.0 gm/dl Albumin/Globulin Ratio 0.5 Assessment and Plan 82 yo M with acute respiratory failure with profound hypoxia requiring BiPAP to rescue his breathing found to have bilateral alveolar infiltrates of undetermined etiology on imaging Acute respiratory failure with hypoxia - required BiPAP therapy and supplemental oxygen to improve his oxygenation and respiratory distress - continues to require high flow levels - Administered laxis which improved sx, repeat again this morning - ECHO with preserved EF, pacemaker was interrogated and troponin unremarkable - Will ask cardiology to see for additional recs Possibility of infectious etiology, atypical and unusual organisms might be suspected given his chronic immunosuppression - Follow BCx - Continue on vanc/cefepime and levaquin - Lactic acid trended downward - sputum culture if obtainable. - Follow UCx for prehospital dysuria - wing cath in place Pneumonitis - could be concerned as given the patient is on amiodarone, - Cont stress dose steroids for his previous adrenal suppression from daily prednisone use- this should cover any inflammatory pneumonitis at this point time\ - Pulmonary consulted: Appreciate recs - Considering UIP, sarcoidosis, connective tissue associated ILD ease, hypersensitivity and on classify oval diseases. - Follow hypersensitivity pneumonitis panel, vasculitic panel as well as rheumatologic panel for further evaluation. - After test results then initiate the patient on steroids at approximately 0.5 mg/kg of ideal body weight and monitor his response. - Consider bronchoscopic evaluation the future if he does not respond to rule out underlying infectious etiology or possibly even surgical lung biopsy. Atrial fibrillation multiple cardioversion/ablation x2/pacer, - Cont on Xarelto, pt states he has not tolerated metoprolol in the past and did refuse it 5/6 - Currently rate controlled Transaminitis - this could be multifactorial from congestion if heart failure would be proven or from inflammation - follow lfts - Improving Elevated INR on presentation - could be related to the liver irritation once again this will be followed in a day and augmented with vitamin K therapy if needed - INR today, continue trend Hx nonHodgkins Lymphoma - stable DVT prevention at this time is Xarelto however if this is stopped we may consider using a another chemical means CODE: FULL Disposition: From home, lives with , remain in tele.
[2018-01-06] MEDS ORDERED: NURSING VERBAL MED ORDER ONE ×2 (11:00)
[2018-01-06] MEDS ORDERED: FUROSEMIDE INJ 40 MG in SYRINGE 0 ML IV ONE (11:30)
[2018-01-06] MEDS: POLYETHYLENE (MIRALAX) 17 GM PACK PO SCH ×2 (12:11→21:00)
[2018-01-06] MEDS: DOCUSATE SODIUM 100 MG CAP PO SCH ×2 (12:11→21:10)
--- NOTE | 2018-01-06 13:43 | Pulmonology Progress Note ---
Pulmonary Progress Note Date of Service January 06, 2018. Attending Dr. Sanford Subjective Patient continues to note dyspnea at at rest. This does seem to be alleviated by the BiPAP. Objective Patient is sitting up in bed on BiPAP still using accessory muscles at times during our conversation: PmHx: Atrial fibrillation/multiple cardioversion/ablation x2/pacer, chronic allergic rhinitis, possible asthma and notable long-term urticarial, mild OVD with an FEV1 of 67%, reduced TLC at 67%, moderately reduced diffusion capacity 41% Vital signs: Currently requiring BiPAP and high FiO2 supplementation Respiratory: Bilateral rhonchi Cardiac: S1-S2 distant heart sounds regular rhythm Abdomen: Soft nontender positive bowel sounds Extremities no clubbing cyanosis or edema Assessment & Plan 82-year-old gentleman with hypoxic respiratory insufficiency: 1. Hypoxemia: Patient is currently well covered for hospital-acquired as well as community-acquired pneumonias. Continue current antibiotics. At this time I will initiate the patient on higher doses of steroids approximately 40 mg/ daily to approximate 0.5 mg/kg of ideal body weight. Data Medications: Current Inpatient Medications Medications (Trade) Dose Ordered Sig/Sirisha Route Start Time Stop Time Status Last Admin Dose Admin Ioversol (Optiray 320) 100 ml UD PRN IV 01/04/18 11:00 01/08/18 10:59 Budesonide (Pulmicort Inhaler) 2 puffs QAM INH 01/05/18 09:00 02/04/18 08:59 01/06/18 07:52 2 PUFFS Rivaroxaban (Xarelto Tab) 20 mg QAM PO 01/04/18 16:30 02/03/18 16:29 01/06/18 07:51 20 MG Cefepime HCl 2000 mg/Syringe 20 ml @ 5 mls/min Q12H IV 01/04/18 16:00 01/11/18 15:59 01/06/18 04:21 5 MLS/MIN Acetaminophen (Tylenol Tab) 650 mg Q4H PRN PO 01/04/18 11:45 02/03/18 11:44 Al Hydrox/Mg Hydrox/Simethicone (Maalox Max Susp) 15 ml Q4H PRN PO 01/04/18 11:45 02/03/18 11:44 Magnesium Hydroxide (Milk Of Magnesia Susp) 30 ml Q12H PRN PO 01/04/18 11:45 02/03/18 11:44 Ondansetron HCl (Zofran Inj) 4 mg Q6H PRN IV 01/04/18 11:45 02/03/18 11:44 01/06/18 04:13 4 MG Miscellaneous Information (Consult) 1 ea UD PRN N/A 01/04/18 11:45 01/11/18 23:59 Hydrocortisone Sodium Succinate 100 mg/Syringe 2 ml @ 4 mls/min Q8H IV 01/04/18 16:00 02/03/18 15:59 01/06/18 07:52 4 MLS/MIN Methylcellulose (Citrucel Powder) 19 gm PM PO 01/04/18 21:00 02/03/18 20:59 01/05/18 19:59 19 GM Vancomycin HCl 1250 mg/Sodium Chloride 275 ml @ 125 mls/hr Q18H IV 01/05/18 06:00 01/11/18 23:59 01/05/18 23:24 125 MLS/HR Morphine Sulfate (MoRPHine SULFATE INJ) 2 mg Q4H PRN IV 01/04/18 18:00 01/18/18 17:59 01/05/18 20:16 2 MG Morphine Sulfate (MoRPHine SULFATE INJ) 4 mg Q4H PRN IV 01/04/18 18:00 01/18/18 17:59 01/05/18 23:26 4 MG Quetiapine Fumarate (seroQUEL TAB) 25 mg HS PRN PO 01/04/18 18:00 02/03/18 17:59 Levofloxacin 750 mg/Prmx 150 ml @ 100 mls/hr Q24H IV 01/05/18 16:00 01/11/18 15:59 01/05/18 15:34 100 MLS/HR Polyethylene (Miralax Powder Packet) 17 gm BID PO 01/06/18 12:00 02/05/18 11:59 01/06/18 12:11 17 GM Docusate Sodium (coLACE CAP) 100 mg BID PO 01/06/18 12:00 02/05/18 11:59 01/06/18 12:11 100 MG Vital Signs: Date Time Temp Pulse Resp B/P (MAP) Pulse Ox O2 Delivery O2 Flow Rate FiO2 01/06/18 12:00 BiPAP 01/06/18 10:49 73 89 60 01/06/18 10:43 36.8 74 28 158/78 (104) 92 BiPAP 70 01/06/18 08:00 BiPAP 01/06/18 06:27 36.1 70 18 149/69 (95) 93 BiPAP 60 01/06/18 04:00 BiPAP 50 01/06/18 03:13 36.5 70 26 139/78 (98) 97 BiPAP 60 01/06/18 00:01 BiPAP 50 01/05/18 23:46 60 01/05/18 23:21 70 94 50 01/05/18 23:17 36.8 70 25 152/75 (100) 92 BiPAP 50 01/05/18 20:00 BiPAP 50 01/05/18 19:56 37.1 72 18 136/69 (91) 91 BiPAP 50 01/05/18 19:11 71 92 50 01/05/18 16:41 36.5 70 19 128/76 (93) 93 Oxymask 15.0 01/05/18 16:00 Mask 5.0 93 Laboratory Results: Last 24 Hours Test 01/05/18 18:25 01/05/18 19:45 01/06/18 04:07 01/06/18 12:30 Cyclic Citrullinated Peptide IgG Ab < 0.40 U/mL Urine Random Creatinine 54.4 mg/dl Urine Random Total Protein 47.8 mg/dl Urine Protein/Creatinine Ratio 0.9 White Blood Count 14.03 K/uL Red Blood Count 3.84 M/uL Hemoglobin 11.8 g/dL Hematocrit 34.3 % Mean Corpuscular Volume 89.3 fL Mean Corpuscular Hemoglobin 30.7 pg Mean Corpuscular Hemoglobin Concent 34.4 g/dl RDW Standard Deviation 47.0 fL RDW Coefficient of Variation 14.3 % Platelet Count 211 K/uL Mean Platelet Volume 10.6 fL Sodium Level 135 mmol/L Potassium Level 3.9 mmol/L Chloride Level 103 mmol/L Carbon Dioxide Level 27 mmol/L Anion Gap 5.0 mmol/L Blood Urea Nitrogen 28 mg/dl Creatinine 1.30 mg/dl Est Creatinine Clear Calc Drug Dose 48.9 ml/min Estimated GFR () 59.3 Estimated GFR (Non- 51.2 BUN/Creatinine Ratio 21.7 Random Glucose 138 mg/dl Calcium Level 8.3 mg/dl Total Bilirubin 0.8 mg/dl Aspartate Amino Transf (AST/SGOT) 58 U/L Alanine Aminotransferase (ALT/SGPT) 76 U/L Alkaline Phosphatase 110 U/L Total Protein 6.0 gm/dl Albumin 2.0 gm/dl Globulin 4.0 gm/dl Albumin/Globulin Ratio 0.5
--- NOTE | 2018-01-06 14:33 | Cardiology Consultation ---
Cardiology Consultation Date of Consultation: January 06, 2018. Requesting Physician: Dr. Rosa Reason for Consultation: AF, Amiodarone Pt evaluation today including: conversation w/ patient, conversation w/ family , physical exam, lab review, review of studies, review of inpatient medication list History of Present Illness This is a very pleasant 82-year-old gentleman who I have followed for a number of years for atrial arrhythmias. He developed atrial fibrillation documented in December 2010, initially episodes were relatively brief and paroxysmal but bothersome. We tried sotalol, as well as flecainide, but we were not able to eliminate atrial arrhythmia. We therefore tried rate control with metoprolol and digoxin with reasonable success however he had difficulty with cognitive ability on metoprolol as well as fatigue and therefore we switched to diltiazem. He continued difficulty with atrial fibrillation as a gradually worsened, he also had evidence of tachybradycardia syndrome with significant bradycardia following termination of his atrial arrhythmia and therefore he underwent pacemaker implantation on February 27, 2013. He continued to have difficulty with atrial fibrillation, we did try by systolic but he did develop symptoms of cognitive defects and GI side effects therefore this was not continued. Multitak was also tried and that caused intermittent nausea and vomiting. We therefore scheduled him for atrial fibrillation ablation which was done on June 13, 2017. Following his first ablation attempt he did have recurrent atrial fibrillation several days after the ablation, therefore amiodarone 200 mg twice daily was started. He was cardioverted on July 08, 2017 but had recurrence again and required repeat cardioversion August 12, 2017 as well as September 20, 2017. He then had a recurrent atrial arrhythmia shortly after that ablation, but this was organized and appeared to be atrial flutter therefore he underwent ablation on November 19, 2017 at [facility]. We did reduce his amiodarone to 200 mg daily at that time. He has had no further atrial arrhythmias. His current admission was prompted by feeling poorly starting 6 days ago (on December 31, 2017) with a cough, fever and then after that progressive shortness of breath. He was started on Cipro as an outpatient but had nausea and vomiting, therefore presented to the emergency room on January 04, 2018 and was noted to have interstitial lung findings and hypoxia. He is currently on BiPAP and continues to have hypoxia without its use. Of note, he had a pulmonary visit with Dr. Cordon, on January 01, 2018 and at that visit he had pulmonary function tests with DLCO, his DLCO was normal although he had a mild restrictive pattern on pulmonary function tests. This would argue against pulmonary toxicity which is generally more gradual but it is possible. Additionally his chest x-ray done on November 11, 2017 showed mild lower lung interstitial thickening possibly representing early interstitial lung disease. Now his chest x-ray shows a clear interstitial pattern. At the time of my evaluation he is still quite short of breath, he is on BiPAP but has not had any palpitations, no chest discomfort and no cardiovascular symptoms. Past Medical/Surgical History (1) History of malignant neoplasm of colon (2) Primary cutaneous T-cell lymphoma (3) Atrial fibrillation (4) Cardiac catheterization (5) Cholecystectomy (6) Hiatal hernia (7) Partial colectomy Family History Heart disease Lung disease Social History Smoking Status: Former Smoker History of Alcohol Use: Yes (1 glass wine or 1 martini 4 days/week) Review of Systems Respiratory: No cough, No shortness of breath, No dyspnea on exertion Cardiac: No chest pain, No PND All Other Systems: Reviewed and Negative Allergies Coded Allergies: Cat Dander (Verified Allergy, Intermediate, asthma, hives, 01/04/18) Dust (Verified Allergy, Intermediate, asthma, hives, 01/04/18) Grass (Verified Allergy, Intermediate, asthma,hives, 01/04/18) Molds & Smuts (Verified Allergy, Intermediate, asthma,hives, 01/04/18) Sulfa Antibiotics (Verified Allergy, Intermediate, hives, 01/04/18) Medications Current Inpatient Medications Medications (Trade) Dose Ordered Sig/Sirisha Route Start Time Stop Time Status Last Admin Dose Admin Ioversol (Optiray 320) 100 ml UD PRN IV 01/04/18 11:00 01/08/18 10:59 Budesonide (Pulmicort Inhaler) 2 puffs QAM INH 01/05/18 09:00 02/04/18 08:59 01/06/18 07:52 2 PUFFS Rivaroxaban (Xarelto Tab) 20 mg QAM PO 01/04/18 16:30 02/03/18 16:29 01/06/18 07:51 20 MG Cefepime HCl 2000 mg/Syringe 20 ml @ 5 mls/min Q12H IV 01/04/18 16:00 01/11/18 15:59 01/06/18 04:21 5 MLS/MIN Acetaminophen (Tylenol Tab) 650 mg Q4H PRN PO 01/04/18 11:45 02/03/18 11:44 Al Hydrox/Mg Hydrox/Simethicone (Maalox Max Susp) 15 ml Q4H PRN PO 01/04/18 11:45 02/03/18 11:44 Magnesium Hydroxide (Milk Of Magnesia Susp) 30 ml Q12H PRN PO 01/04/18 11:45 02/03/18 11:44 Ondansetron HCl (Zofran Inj) 4 mg Q6H PRN IV 01/04/18 11:45 02/03/18 11:44 01/06/18 04:13 4 MG Miscellaneous Information (Consult) 1 ea UD PRN N/A 01/04/18 11:45 01/11/18 23:59 Methylcellulose (Citrucel Powder) 19 gm PM PO 01/04/18 21:00 02/03/18 20:59 01/05/18 19:59 19 GM Vancomycin HCl 1250 mg/Sodium Chloride 275 ml @ 125 mls/hr Q18H IV 01/05/18 06:00 01/11/18 23:59 01/05/18 23:24 125 MLS/HR Morphine Sulfate (MoRPHine SULFATE INJ) 2 mg Q4H PRN IV 01/04/18 18:00 01/18/18 17:59 01/05/18 20:16 2 MG Morphine Sulfate (MoRPHine SULFATE INJ) 4 mg Q4H PRN IV 01/04/18 18:00 01/18/18 17:59 01/05/18 23:26 4 MG Quetiapine Fumarate (seroQUEL TAB) 25 mg HS PRN PO 01/04/18 18:00 02/03/18 17:59 Levofloxacin 750 mg/Prmx 150 ml @ 100 mls/hr Q24H IV 01/05/18 16:00 01/11/18 15:59 01/05/18 15:34 100 MLS/HR Polyethylene (Miralax Powder Packet) 17 gm BID PO 01/06/18 12:00 02/05/18 11:59 01/06/18 12:11 17 GM Docusate Sodium (coLACE CAP) 100 mg BID PO 01/06/18 12:00 02/05/18 11:59 01/06/18 12:11 100 MG Prednisone (PredniSONE TAB) 20 mg BID PO 01/06/18 21:00 02/05/18 20:59 Physical Exam Vital Signs Past 12 Hours Date Time Temp Pulse Resp B/P (MAP) Pulse Ox O2 Delivery O2 Flow Rate FiO2 01/06/18 13:50 73 97 70 01/06/18 12:00 BiPAP 01/06/18 10:49 73 89 60 01/06/18 10:43 36.8 74 28 158/78 (104) 92 BiPAP 70 01/06/18 08:00 BiPAP 01/06/18 06:27 36.1 70 18 149/69 (95) 93 BiPAP 60 01/06/18 04:00 BiPAP 50 01/06/18 03:13 36.5 70 26 139/78 (98) 97 BiPAP 60 Constitutional: General Apperance: well-nourished Level of Distress: moderate distress Psychiatric: Mental Status: active & alert Head: normocephalic Eyes: EOM: EOMI ENMT: normal ENT inspection, hearing grossly normal Neck: supple, no masses Lungs: Respiratory effort: good air movement Auscultation: breath sounds normal, no wheezing, pertinent finding (On BIPAP ) Cardiovascular: Heart Auscultation: RRR, no murmurs, no rubs, no gallops Peripheral Pulses: Bruits: none appreciated Abdomen: Bowel Sounds: normal Inspection & Palpation: soft, no tenderness, guarding & rebound, no masses Musculoskeletal: normal strength (5/5 throughout) Extremities: no edema Neurologic: Cranial Nerves: grossly intact Sensation: grossly intact Data Laboratory Results: Last 24 Hours Test 01/05/18 18:25 01/05/18 19:45 01/06/18 04:07 01/06/18 12:30 Cyclic Citrullinated Peptide IgG Ab < 0.40 U/mL Urine Random Creatinine 54.4 mg/dl Urine Random Total Protein 47.8 mg/dl Urine Protein/Creatinine Ratio 0.9 White Blood Count 14.03 K/uL Red Blood Count 3.84 M/uL Hemoglobin 11.8 g/dL Hematocrit 34.3 % Mean Corpuscular Volume 89.3 fL Mean Corpuscular Hemoglobin 30.7 pg Mean Corpuscular Hemoglobin Concent 34.4 g/dl RDW Standard Deviation 47.0 fL RDW Coefficient of Variation 14.3 % Platelet Count 211 K/uL Mean Platelet Volume 10.6 fL Sodium Level 135 mmol/L Potassium Level 3.9 mmol/L Chloride Level 103 mmol/L Carbon Dioxide Level 27 mmol/L Anion Gap 5.0 mmol/L Blood Urea Nitrogen 28 mg/dl Creatinine 1.30 mg/dl Est Creatinine Clear Calc Drug Dose 48.9 ml/min Estimated GFR () 59.3 Estimated GFR (Non- 51.2 BUN/Creatinine Ratio 21.7 Random Glucose 138 mg/dl Calcium Level 8.3 mg/dl Total Bilirubin 0.8 mg/dl Aspartate Amino Transf (AST/SGOT) 58 U/L Alanine Aminotransferase (ALT/SGPT) 76 U/L Alkaline Phosphatase 110 U/L Total Protein 6.0 gm/dl Albumin 2.0 gm/dl Globulin 4.0 gm/dl Albumin/Globulin Ratio 0.5 Imaging: As noted in HPI, chest x-ray were reviewed. Clearly an increase in interstitial markings compared to mid October 2017. Not entirely consistent with congestive heart failure. EKG: Sinus rhythm, essentially normal. Telemetry reviewed: Sinus rhythm, no significant arrhythmia. Pacemaker evaluation: Functioning well, no atrial fibrillation or flutter since his last ablation. Assessment & Plan 1. Interstitial pulmonary edema: I doubt this is cardiac, it is uncertain whether it could be amiodarone. A normal DLCO several days before this started would argue against this being due to amiodarone, but I think it would be prudent to discontinue the amiodarone now. He may not need amiodarone now, however in the future he may. If we can make the diagnosis it may be helpful for future management but I would certainly not keep him on amiodarone now. 2. Atrial fibrillation and flutter: He had good control of his atrial fibrillation on amiodarone and his first ablation, he has had good control of atrial flutter following his second ablation and continued amiodarone. I had planned on trying to wean him off of amiodarone anyhow, so I would do so now. Hopefully he will not have recurrence. If he does it may be important for us to know whether amiodarone was a cause of this presentation or not, if we can figure it out. 3. Pacemaker: Functioning well, minimal pacing. Thank you for allowing me to participate in his care.
[2018-01-06] MEDS: LEVOFLOXACIN / D5W 750 MG in PREMIXED IN D5W 150 ML IV SCH (15:55)
[2018-01-06] MEDS ORDERED: VANCOMYCIN TROUGH ONE (17:30)
[2018-01-06] MEDS: VANCOMYCIN IV 1,250 MG in SODIUM CHLORIDE 0.9% 250ML 250 ML IV SCH (19:01)
[2018-01-06] MEDS: METHYLCELLULOSE POWDER 454 GM JAR PO SCH (21:11)
[2018-01-06] MEDS: METOPROLOL TARTRATE 25 MG TAB PO SCH (21:12)
[2018-01-06] MEDS: MoRPHine SULFATE 2 MG/ML CARP IV PRN ×2 (21:18→23:29)
[2018-01-07] VITALS (21 sets, daily range): BP systolic 123–158; BP diastolic 59–85; PULSE 70–81; TEMP 36.3–38.4; O2SAT 78–97
[2018-01-07] MEDS: CEFEPIME IV 2,000 MG in SYRINGE 7.5 ML IV SCH ×2 (04:18→15:51)
[2018-01-07 05:51] LABS: HEMATOCRIT 35.5 % (42-52); HEMOGLOBIN 12.2 g/dL (14.0-18.0); MEAN CELL VOLUME 89.6 fL (80-100); MEAN CORPUSCULAR HEMOGLOBIN 30.8 pg (25-34); MEAN CORPUSCULAR HGB CONC 34.4 g/dl (32-36); MEAN PLATELET VOLUME 10.1 fL (7.4-10.4); PLATELET COUNT 147 K/uL (130-400); RED CELL DISTRIBUTION WIDTH CV 14.4 % (11.5-14.5); RED CELL DISTRIBUTION WIDTH SD 47.6 fL (36.4-46.3); WHITE BLOOD COUNT 13.25 K/uL (4.8-10.8)
[2018-01-07 06:26] LABS: CREATININE 1.39 mg/dl (0.60-1.40); POTASSIUM 4.1 mmol/L (3.5-5.1)
[2018-01-07 06:29] LABS: TOTAL PROTEIN 5.9 gm/dl (6.4-8.2)
--- NOTE | 2018-01-07 07:14 | DIAGNOSTIC IMAGING REPORT ---
CHEST ONE VIEW PORTABLE CLINICAL HISTORY: 82 years-old Male presenting with Maxed out bipap, decreasing sats. TECHNIQUE: Portable upright AP view of the chest was obtained. COMPARISON: 01/05/2018. FINDINGS: The subclavian pacer with leads in the right atrium and right ventricular apex. Multiple external leads project over the thorax degrading evaluation. Atherosclerosis of the aortic arch. Cardiac silhouette mildly enlarged, unchanged. Diffuse hazy added density to the lungs with coarse reticular background lung markings. No large pleural effusion or pneumothorax. Degenerative changes of the thoracic spine. Upper abdomen normal. IMPRESSION: 1. Unchanged diffuse bilateral pulmonary infiltrates most concerning for diffuse alveolar damage with infection or cardiogenic edema considered less likely. Electronically signed by: Wander Kay M.D. 01/07/2018 7:13 AM Dictated Date/Time: 01/07/2018 7:11 AM
[2018-01-07] MEDS: BUDESONIDE 90 MCG INH INH SCH (07:39)
[2018-01-07] MEDS: RIVAROXABAN 10 MG TAB PO SCH (07:40)
[2018-01-07] MEDS: POLYETHYLENE (MIRALAX) 17 GM PACK PO SCH ×2 (07:40→21:00)
[2018-01-07] MEDS: METOPROLOL TARTRATE 25 MG TAB PO SCH ×2 (07:40→21:00)
[2018-01-07] MEDS: DOCUSATE SODIUM 100 MG CAP PO SCH ×2 (07:40→20:25)
[2018-01-07] MEDS ORDERED: VANCOMYCIN IV 1,500 MG in SODIUM CHLORIDE 0.9% 500ML 500 ML IV SCH (10:00)
--- NOTE | 2018-01-07 14:04 | Pharmacy Progress Note ---
Pharmacy Antibiotic Prog Note Date of Service January 07, 2018. Subjective The patient is currently receiving vancomycin 1250 mg IV every 18 hours. The patient is currently on day # 4 of vancomycin IV therapy. Objective Height (Feet): 6 Height (Inches): 0.00 Weight (Kilograms): 83.200 Lab Results (24hrs): Test 01/06/18 17:30 01/07/18 01:07 01/07/18 05:30 Vancomycin Level Trough 11.6 mcg/ml (SEE COMMENT) Arterial Blood pH 7.45 (7.35-7.45) Arterial Blood Partial Pressure CO2 38 mmHg (35-46) Arterial Blood Partial Pressure O2 68 mm/Hg (80-95) Arterial Blood HCO3 26 mmol/L (19-24) Arterial Blood Oxygen Saturation 93.6 % (90-95) Arterial Blood Base Excess 2.0 mEq/L (-9-1.8) Arterial Blood Gas Delivery 100% BIPAP Rolando Test POS (POS) White Blood Count 13.25 K/uL (4.8-10.8) Red Blood Count 3.96 M/uL (4.7-6.1) Hemoglobin 12.2 g/dL (14.0-18.0) Hematocrit 35.5 % (42-52) Mean Corpuscular Volume 89.6 fL (80-100) Mean Corpuscular Hemoglobin 30.8 pg (25-34) Mean Corpuscular Hemoglobin Concent 34.4 g/dl (32-36) RDW Standard Deviation 47.6 fL (36.4-46.3) RDW Coefficient of Variation 14.4 % (11.5-14.5) Platelet Count 147 K/uL (130-400) Mean Platelet Volume 10.1 fL (7.4-10.4) Sodium Level 136 mmol/L (136-145) Potassium Level 4.1 mmol/L (3.5-5.1) Chloride Level 103 mmol/L (98-107) Carbon Dioxide Level 26 mmol/L (21-32) Anion Gap 7.0 mmol/L (3-11) Blood Urea Nitrogen 33 mg/dl (7-18) Creatinine 1.39 mg/dl (0.60-1.40) Est Creatinine Clear Calc Drug Dose 45.8 ml/min Estimated GFR () 54.7 Estimated GFR (Non- 47.2 BUN/Creatinine Ratio 23.9 (10-20) Random Glucose 132 mg/dl (70-99) Calcium Level 8.0 mg/dl (8.5-10.1) Total Bilirubin 0.7 mg/dl (0.2-1) Aspartate Amino Transf (AST/SGOT) 60 U/L (15-37) Alanine Aminotransferase (ALT/SGPT) 80 U/L (12-78) Alkaline Phosphatase 173 U/L (45-117) Total Protein 5.9 gm/dl (6.4-8.2) Albumin 2.0 gm/dl (3.4-5.0) Globulin 3.9 gm/dl (2.5-4.0) Albumin/Globulin Ratio 0.5 (0.9-2) Assessment & Plan Assessment * 82 yo M with possible PNA * Antibiotics * Cefepime, levofloxacin, vancomycin * Appropriate for now, pending culture results * Cultures * No nasal MRSA swab obtained - likely too late to order now (higher rate of false negatives) * Sputum culture obtained today * Blood cultures NGTD * Renal: SCr stable and at/near baseline Vancomycin * Goal trough 15-20 mcg/mL * Level of 11.6 mcg/mL is subtherapeutic. It was drawn at an appropriate time and was the 4th overall dose (thus approximates steady-state concentration) * Do not anticipate further accumulation of vancomycin due to BMI < 25 kg/m2 * Will increase vancomycin dose slightly Plan * Increase vancomycin 1500 mg IV q18h * Trough 01/08 @ 2130 Pharmacy will continue to follow and will adjust dose/frequency as necessary. Thank you
[2018-01-07] MEDS: MoRPHine SULFATE 2 MG/ML CARP IV PRN ×2 (14:23→15:51)
--- NOTE | 2018-01-07 14:44 | PULMONARY PROGRESS NOTE ---
DATE: 01/07/2018 PROBLEM LIST: Includes: 1. Hypoxic respiratory insufficiency. 2. Hypoxemia. 3. History of atrial fibrillation, status post ablation x2 with resultant atrial fibrillation, on amiodarone. SUBJECTIVE: The patient was seen in his room 201. His was present during the exam today. The patient voices that he was out of bed this morning and did fairly well. He states that overall he is about the same as he was yesterday, has not really seen much change. Apparently overnight, he had difficulty with desaturations down into the low 80% range on 80% FiO2, so he was increased to 100% and continues on BiPAP at this time. Patient does report that he is coughing some. He has been able to produce some mucus. There was no blood noticed in the mucus. Denies any chest heaviness or tightness. Denies any chest pain at present. No palpitations. Denies any GI difficulties at this time. No nausea or vomiting. Patient's chart was reviewed and patient has been on prednisone low dose since middle of last year. He was placed on a tapering dose due to his arthritis and maintained on 5 mg daily. Also, patient was on amiodarone since September of this year due to atrial fibrillation following cardiac ablation; he was initially started on 400 mg daily and tapered down to 200 mg daily. Since he has been in the hospital, he has been off of amiodarone. OBJECTIVE: GENERAL: Patient is an 82-year-old male, lying in bed, does not appear in any acute respiratory distress. He is alert, oriented x3. He is interactive and cooperative. He is able to converse, does have some accessory muscle use with conversation. VITAL SIGNS: Temperature 36.3, pulse 81, respirations 25, blood pressure is 136/73, pulse ox is 96% with BiPAP at 100% FiO2. I and O: Patient had a negative fluid balance yesterday of negative 1300 mL. NECK: Supple, thin. There is no mass, no adenopathy, no bruit. CHEST: Patient has coarse rales at the bases, a few scattered rhonchi further up. CARDIOVASCULAR: Regular rate and rhythm. Patient does have a 2/6 systolic murmur. No gallops or rubs noted. ABDOMEN: Bowel sounds present. Abdomen is soft, nontender. EXTREMITIES: No erythema or edema. NEUROLOGIC: Cranial nerves II through XII are intact. No focal deficits noted. LABORATORY DATA: Shows white count of 13,000, H and H 12.2 and 35.5, platelet count 147,000. ABG done overnight shows pH 7.45, pCO2 of 38, pO2 of 68, on 100% BiPAP. Urine legionella was negative. Mycoplasma IgM, IgG are pending. Blood cultures are negative today. Chest x-ray shows persisting diffuse bilateral infiltrative pattern. IMPRESSION: An 82-year-old male who presented with significant shortness of breath, fever and cough a couple days prior, presented to the ER, was admitted, has progressed to hypoxic respiratory failure, on oxygen, 100% FiO2 with BIPAP, at this point, unsure of the etiology as Dr. Sanford and is now relayed patient is covered for hospital-acquired and community-acquired pneumonias. However, with patient being on prednisone prior, need to consider atypicals. Would like to get a sputum culture if one can be obtained. We will see how patient does until tomorrow. If there is no improvement until tomorrow, then we need to reevaluate and order a plan. Continue prednisone at 40 mg daily currently as well. Would recommend since he is putting a significant amount of fluid out, continue IV Lasix as well. We will continue to monitor. Patient seen examined and agree with plan. DONALDD
--- NOTE | 2018-01-07 15:09 | Progress Note ---
Subjective Date of Service: January 07, 2018. Subjective Pt evaluation today including: conversation w/ patient, conversation w/ family , physical exam, chart review, lab review, review of studies, conversation w/ bilingual sales consultant, review of inpatient medication list Voiding: wing catheter in place Require higher level of FiO2 currently is on 100% in BiPAP, General condition looks fair, however reported significant generalized weakness , tired, cough with white phlegm, denies chest pain Problem List Medical Problems: (1) Bilateral pneumonia Status: Acute (2) Hypoxia Status: Acute (3) Lactic acidosis Status: Acute Review of Systems Constitutional: + weakness, + fatigue, No fever, No chills, No sweats, No weight loss, No problem reported Eyes: No worsening of vision, No eye pain, No redness, No discharge, No diplopia ENT: No hearing loss, No unusual epistaxis, No nasal symptoms, No sore throat, No tinnitus, No dental problems, No trouble swallowing Respiratory: + cough, + shortness of breath, + dyspnea at rest, No sputum, No wheezing, No dyspnea on exertion, No hemoptysis Cardiac: No chest pain, No orthopnea, No PND, No edema, No claudication, No palpitations Abdomen: + problem reported (Wing catheter in place, is having hematuria), No pain, No nausea, No vomiting, No diarrhea, No constipation Musculoskeletal: No joint pain, No muscle pain, No swelling, No calf pain Male : + hematuria, No dysuria, No urinary frequency, No incontinence, No nocturia more than once/night, No slowing stream Neurologic: No memory loss, No paralysis, No weakness, No numbness/tingling, No vertigo, No balance problems Psychiatric: No depression symptoms, No anhedonism, No anxiety, No insomnia, No substance abuse Heme: No abnormal bleeding/bruising, No clotting problems, No swollen lymph nodes, No night sweats Endo: No fatigue, No excessive thirst, No excessive urination Skin: No rash, No itch, No new/changing skin lesions, No color change, No bleeding Objective Vital Signs Date Time Temp Pulse Resp B/P (MAP) Pulse Ox O2 Delivery O2 Flow Rate FiO2 01/07/18 12:00 BiPAP 100 01/07/18 11:42 36.9 71 18 141/68 (92) 95 01/07/18 08:00 96 BiPAP 100 01/07/18 07:11 81 96 100 01/07/18 06:31 36.3 70 25 136/73 (94) 92 BiPAP 100 01/07/18 04:29 76 93 100 01/07/18 04:12 37.3 70 26 135/80 (98) 97 BiPAP 100 01/07/18 04:00 95 BiPAP 100 01/07/18 02:03 70 96 100 01/07/18 00:37 70 92 100 01/07/18 00:16 37.4 70 30 133/67 (89) 91 BiPAP 80 01/07/18 00:01 89 BiPAP 80 01/06/18 23:27 78 92 80 01/06/18 22:54 81 96 70 01/06/18 20:00 BiPAP 01/06/18 19:56 36.5 71 31 131/63 (85) 92 BiPAP 15.0 01/06/18 19:05 78 95 70 01/06/18 16:00 BiPAP 01/06/18 15:49 36.5 71 22 141/79 (99) 95 BiPAP Physical Exam General Appearance: WD/WN, no apparent distress, + pertinent finding (On BiPAP machine 100% FiO2) Eyes: normal inspection, PERRL, EOMI, sclerae normal ENT: normal ENT inspection, hearing grossly normal, pharynx normal Neck: supple, no adenopathy, thyroid normal, no JVD, no carotid bruits, trachea midline Respiratory/Chest: chest non-tender, normal breath sounds, no respiratory distress, no accessory muscle use, + decreased breath sounds Cardiovascular: regular rate, rhythm, no edema, no gallop, no JVD, no murmur Abdomen: normal bowel sounds, non tender, soft, no organomegaly, no pulsatile mass Extremities: normal range of motion, non-tender, normal inspection, no pedal edema, no calf tenderness, normal capillary refill, pelvis stable Neurologic/Psychiatric: santa's helper II-XII nml as tested, no motor/sensory deficits, alert, normal mood/affect, oriented x 3, + abnormal cerebellar tests Skin: normal color, warm/dry, no rash Lymphatic: no adenopathy Laboratory Results Last 24 Hours Test 01/06/18 17:30 01/07/18 01:07 01/07/18 05:30 Vancomycin Level Trough 11.6 mcg/ml Arterial Blood pH 7.45 Arterial Blood Partial Pressure CO2 38 mmHg Arterial Blood Partial Pressure O2 68 mm/Hg Arterial Blood HCO3 26 mmol/L Arterial Blood Oxygen Saturation 93.6 % Arterial Blood Base Excess 2.0 mEq/L Arterial Blood Gas Delivery 100% BIPAP Rolando Test POS White Blood Count 13.25 K/uL Red Blood Count 3.96 M/uL Hemoglobin 12.2 g/dL Hematocrit 35.5 % Mean Corpuscular Volume 89.6 fL Mean Corpuscular Hemoglobin 30.8 pg Mean Corpuscular Hemoglobin Concent 34.4 g/dl RDW Standard Deviation 47.6 fL RDW Coefficient of Variation 14.4 % Platelet Count 147 K/uL Mean Platelet Volume 10.1 fL Sodium Level 136 mmol/L Potassium Level 4.1 mmol/L Chloride Level 103 mmol/L Carbon Dioxide Level 26 mmol/L Anion Gap 7.0 mmol/L Blood Urea Nitrogen 33 mg/dl Creatinine 1.39 mg/dl Est Creatinine Clear Calc Drug Dose 45.8 ml/min Estimated GFR () 54.7 Estimated GFR (Non- 47.2 BUN/Creatinine Ratio 23.9 Random Glucose 132 mg/dl Calcium Level 8.0 mg/dl Total Bilirubin 0.7 mg/dl Aspartate Amino Transf (AST/SGOT) 60 U/L Alanine Aminotransferase (ALT/SGPT) 80 U/L Alkaline Phosphatase 173 U/L Total Protein 5.9 gm/dl Albumin 2.0 gm/dl Globulin 3.9 gm/dl Albumin/Globulin Ratio 0.5 Assessment and Plan 82 yo M with admitted on January 04, 2018 because acute respiratory failure with profound hypoxia requiring BiPAP to rescue his breathing found to have bilateral alveolar infiltrates of undetermined etiology on imaging Acute respiratory failure with hypoxia now require higher level of FiO2 support which is BiPAP FiO2 100% Possibility of pneumonia with infectious etiology, include a fungal infection or atypical and unusual organisms might be suspected Pneumonitis , may be related to amiodarone, stop amiodarone after double check with staffing coordinator Atrial fibrillation, cardiology on the case, start the metoprolol, has been on on Xarelto, will discontinue Xarelto because of hematuria multiple cardioversion/ablation x2/pacer, Transaminitis Elevated INR on presentation New onset of hematuria, no signs of infection, no history of traumatic injury, hold Xarelto for now, urology consultation, check PSA Continue BiPAP , continue antibiotic, daily assessment to see if need to give Lasix, ECHO with preserved EF, pacemaker was interrogated and troponin unremarkable cardiology consult, no sure effects of amiodarone to the interstitial lung disease, however okay to stop amiodarone for now, Cont stress dose steroids for his previous adrenal suppression from daily prednisone use this should cover any inflammatory pneumonitis Pulmonary consulted: Considering UIP, sarcoidosis, connective tissue associated ILD ease, hypersensitivity and on classify oval diseases. Follow up hypersensitivity pneumonitis panel, vasculitic panel as well as rheumatologic panel for further evaluation, may need bronchoscope communication studies professor Patient is condition is possible declining require higher level of oxygen support, and has hematuria, and complex cases, has requested ICU service to evaluation per report from communication studies professor may plan to have intubated and have Bronch to have more studies GI DVT prophylaxis is covered, will give heparin while Xarelto is on hold PPI for GI prophylaxis Continued [facility] stay due to: multiple IV medications needed Discharge planning: uncertain
--- NOTE | 2018-01-07 15:31 | Cardiology Follow-Up ---
Subjective Date of Service: January 07, 2018. Pt evaluation today including: conversation w/ patient, conversation w/ family , physical exam, lab review, review of studies, review of inpatient medication list History of Present Illness This is a very pleasant 82-year-old gentleman who I have followed for a number of years for atrial arrhythmias. He developed atrial fibrillation documented in December 2010, initially episodes were relatively brief and paroxysmal but bothersome. We tried sotalol, as well as flecainide, but we were not able to eliminate atrial arrhythmia. We therefore tried rate control with metoprolol and digoxin with reasonable success however he had difficulty with cognitive ability on metoprolol as well as fatigue and therefore we switched to diltiazem. He continued difficulty with atrial fibrillation as a gradually worsened, he also had evidence of tachybradycardia syndrome with significant bradycardia following termination of his atrial arrhythmia and therefore he underwent pacemaker implantation on February 27, 2013. He continued to have difficulty with atrial fibrillation, we did try by systolic but he did develop symptoms of cognitive defects and GI side effects therefore this was not continued. Multitak was also tried and that caused intermittent nausea and vomiting. We therefore scheduled him for atrial fibrillation ablation which was done on June 13, 2017. Following his first ablation attempt he did have recurrent atrial fibrillation several days after the ablation, therefore amiodarone 200 mg twice daily was started. He was cardioverted on July 08, 2017 but had recurrence again and required repeat cardioversion August 12, 2017 as well as September 20, 2017. He then had a recurrent atrial arrhythmia shortly after that ablation, but this was organized and appeared to be atrial flutter therefore he underwent ablation on November 19, 2017 at [facility]. We did reduce his amiodarone to 200 mg daily at that time. He has had no further atrial arrhythmias. His current admission was prompted by feeling poorly starting 6 days ago (on December 31, 2017) with a cough, fever and then after that progressive shortness of breath. He was started on Cipro as an outpatient but had nausea and vomiting, therefore presented to the emergency room on January 04, 2018 and was noted to have interstitial lung findings and hypoxia. He is currently on BiPAP and continues to have hypoxia without its use. Of note, he had a pulmonary visit with Dr. Cordon, on January 01, 2018 and at that visit he had pulmonary function tests with DLCO, his DLCO was normal although he had a mild restrictive pattern on pulmonary function tests. This would argue against pulmonary toxicity which is generally more gradual but it is possible. Additionally his chest x-ray done on November 11, 2017 showed mild lower lung interstitial thickening possibly representing early interstitial lung disease. Now his chest x-ray shows a clear interstitial pattern. This morning he is comfortable laying supine in bed, he denies shortness of breath but he is on 100% oxygen through his BiPAP. No palpitations or chest discomfort. Social History Smoking Status: Former Smoker History of Alcohol Use: Yes (1 glass wine or 1 martini 4 days/week) Review of Systems Respiratory: No cough, No shortness of breath, No dyspnea on exertion Cardiac: No chest pain, No PND Medications Cardiovascular: Item Value Date Time Metoprolol 25 mg 01/06/18 2100 Tartrate BID/PO 01/07/18 0740 (Lopressor Tab) Rivaroxaban 20 mg 01/04/18 1630 (Xarelto Tab) QAM/PO 01/07/18 0740 Objective Vital Signs Past 12 Hours Date Time Temp Pulse Resp B/P (MAP) Pulse Ox O2 Delivery O2 Flow Rate FiO2 01/07/18 07:11 81 96 100 01/07/18 06:31 36.3 70 25 136/73 (94) 92 BiPAP 100 01/07/18 04:29 76 93 100 01/07/18 04:12 37.3 70 26 135/80 (98) 97 BiPAP 100 01/07/18 04:00 95 BiPAP 100 01/07/18 02:03 70 96 100 01/07/18 00:37 70 92 100 01/07/18 00:16 37.4 70 30 133/67 (89) 91 BiPAP 80 01/07/18 00:01 89 BiPAP 80 01/06/18 23:27 78 92 80 01/06/18 22:54 81 96 70 Last Recorded Weight-Kilograms: 83.200 Physical Exam Constitutional: General Apperance: well-nourished Level of Distress: moderate distress Lungs: Respiratory effort: good air movement Auscultation: breath sounds normal, no wheezing, rales/crackles on the left , rales/crackles on the right, pertinent finding (On BIPAP) Cardiovascular: Heart Auscultation: RRR, no murmurs, no rubs, no gallops Peripheral Pulses: Bruits: none appreciated Extremities: no edema Data Laboratory Results: Last 24 Hours Test 01/06/18 12:30 01/06/18 17:30 01/07/18 01:07 01/07/18 05:30 Vancomycin Level Trough 11.6 mcg/ml Arterial Blood pH 7.45 Arterial Blood Partial Pressure CO2 38 mmHg Arterial Blood Partial Pressure O2 68 mm/Hg Arterial Blood HCO3 26 mmol/L Arterial Blood Oxygen Saturation 93.6 % Arterial Blood Base Excess 2.0 mEq/L Arterial Blood Gas Delivery 100% BIPAP Rolando Test POS White Blood Count 13.25 K/uL Red Blood Count 3.96 M/uL Hemoglobin 12.2 g/dL Hematocrit 35.5 % Mean Corpuscular Volume 89.6 fL Mean Corpuscular Hemoglobin 30.8 pg Mean Corpuscular Hemoglobin Concent 34.4 g/dl RDW Standard Deviation 47.6 fL RDW Coefficient of Variation 14.4 % Platelet Count 147 K/uL Mean Platelet Volume 10.1 fL Sodium Level 136 mmol/L Potassium Level 4.1 mmol/L Chloride Level 103 mmol/L Carbon Dioxide Level 26 mmol/L Anion Gap 7.0 mmol/L Blood Urea Nitrogen 33 mg/dl Creatinine 1.39 mg/dl Est Creatinine Clear Calc Drug Dose 45.8 ml/min Estimated GFR () 54.7 Estimated GFR (Non- 47.2 BUN/Creatinine Ratio 23.9 Random Glucose 132 mg/dl Calcium Level 8.0 mg/dl Total Bilirubin 0.7 mg/dl Aspartate Amino Transf (AST/SGOT) 60 U/L Alanine Aminotransferase (ALT/SGPT) 80 U/L Alkaline Phosphatase 173 U/L Total Protein 5.9 gm/dl Albumin 2.0 gm/dl Globulin 3.9 gm/dl Albumin/Globulin Ratio 0.5 Imaging: Checks x-ray little changed, continued infiltrates Telemetry reviewed: Sinus rhythm, no atrial arrhythmias Assessment and Plan 1. Interstitial pulmonary edema: I doubt this is cardiac, it is uncertain whether it could be amiodarone. A normal DLCO several days before this started would argue against this being due to amiodarone, but I think it would be prudent to discontinue the amiodarone now. He may not need amiodarone now, however in the future he may. If we can make the diagnosis it may be helpful for future management but I would certainly not keep him on amiodarone now. 2. Atrial fibrillation and flutter: He had good control of his atrial fibrillation on amiodarone after his first ablation, he has had good control of atrial flutter following his second ablation and continued amiodarone. I had planned on trying to wean him off of amiodarone anyhow if he did not have recurrent atrial arrhythmias, so I would do so now. Hopefully he will not have recurrence. If he does it may be important for us to know whether amiodarone was a cause of this presentation or not, if we can figure it out. 3. Pacemaker: Functioning well, minimal pacing. 4. CHF: I doubt he has significant CHF although lowering his left atrial pressure may be beneficial even if it is noncardiogenic pulmonary edema. His BUN and creatinine are increasing consistent with intravascular fluid depletion. His I&O is negative and his weight has dropped, although not as much as his intake and output would suggest. I would be cautious about diuresing too much. Thank you for allowing me to participate in his care.
[2018-01-07] MEDS ORDERED: FUROSEMIDE 40 MG/4 ML VIAL IV STA (15:47)
[2018-01-07] MEDS: LEVOFLOXACIN / D5W 750 MG in PREMIXED IN D5W 150 ML IV SCH (15:51)
--- NOTE | 2018-01-07 15:55 | Urology Consultation ---
History General Date of Service: January 07, 2018. Primary Care Physician: No Doctor, Assigned History of Present Illness 82-year-old gentleman admitted with acute respiratory compromise -CT of the chest showing infiltrate throughout -On antibiotics -Active respiratory therapy -Flynn catheter in place -Minimal mobility at present secondary to his respiratory compromise -Developed gross hematuria today -day 3 of having a Flynn catheter in place UA on arrival is nitrite positive He believes he may have had gross hematuria several years in the past, but nothing recently - he did have mild dysuria prior to arrival at the hospital Denies significant Flynn trauma Laboratory Labs were reviewed and are within normal limits unless listed below. Labs are available in the chart and at [facility] Problem List Medical Problems: (1) Bilateral pneumonia Status: Acute (2) Hypoxia Status: Acute (3) Lactic acidosis Status: Acute Past History A Fib, asthma, cancer - colon, cancer - lymphoma Past Surgical History: cardiac catheterization, cholecystectomy, colectomy Family History Heart disease Lung disease Social History Hx Tobacco Use In Past Year?: No (qit in 1969) Smoking: quit greater than 1 year Marital status: Housing status: lives with family Occupation status: retired Immunizations History of Influenza Vaccine: Yes Influenza Vaccine Date: Jun 02, 2012 History of Tetanus Vaccine?: Yes History of Pneumococcal: yes - within the past 5 years Pneumococcal Date: Mar 01, 2009 History of Hepatitis B Vaccine: No History of MDRO No Allergies Coded Allergies: Cat Dander (Verified Allergy, Intermediate, asthma, hives, 01/04/18) Dust (Verified Allergy, Intermediate, asthma, hives, 01/04/18) Grass (Verified Allergy, Intermediate, asthma,hives, 01/04/18) Molds & Smuts (Verified Allergy, Intermediate, asthma,hives, 01/04/18) Sulfa Antibiotics (Verified Allergy, Intermediate, hives, 01/04/18) Medications Home Medications: Home Meds and Scripts Medications Dose Route/Sig Max Daily Dose Days Date Category Dose Instructions Yenni Allergy (Fexofenadine Hcl) 180 Mg Tab 180 Mg PO QAM 01/04/18 Reported Ciprofloxacin HCl (Ciprofloxacin) 500 Mg Tab 1 Tab PO UD 01/04/18 Reported GIVEN 28TABS FOR 14D SUPPLY, PT UNSURE HOW ITS PRESCRIBED Pulmicort Flexhaler (Budesonide) 60 Puffs/5400 Mcg Aero 1-2 Puffs INH QAM 01/04/18 Reported Temovate (Clobetasol Propionate) 0.05 % Oin 1 Appln TOP BID 09/20/17 Reported Aristocort 0.1% (Triamcinolone Acet) 90 Appln/30 Gm Cr DIRECTED 07/08/17 Reported Lotrimin 1% (Clotrimazole) 90 Appln/30 Gm Cr DIRECTED 07/08/17 Reported Lucentis (Ranibizumab) 0.5 Mg/0.05 Ml Inj DIRECTED 07/08/17 Reported Carafate (Sucralfate) 1 Gm/10 Ml Tennille 10 Ml PO QID 30 07/08/17 Reported Prednisone 5 Mg Tab 5 Mg PO DAILY 07/08/17 Reported Citrucel Fiber Laxative (Methylcellulose (Laxative)) 1 Pow Pow DIRECTED 07/08/17 Reported Cordarone (Amiodarone Hcl) 200 Mg Tab 200 Mg PO DAILY 07/08/17 Reported Pataday (Olopatadine Hydrochloride) 37 Drops/2.5 Ml Soln 1 Drops OP DIRECTED 30 07/08/17 Reported Preservision Areds (Multiple Vitamins W/ Minerals) 1 Cap Cap 1 Cap PO BID 12/09/15 Reported Ketoconazole (Ketoconazole (Topical)) 2 % Sha 1 Appln TOP 2XWK 12/09/15 Reported Tylenol (Acetaminophen) 325 Mg Tab 2 Tabs PO Q6 PRN 10/31/15 Reported Levsin (Hyoscyamine Sulfate) 0.125 Mg Tab 2 Tabs PO DAILY PRN 02/23/13 Reported Xarelto (Rivaroxaban) 20 Mg Tab 20 Mg PO QAM 02/23/13 Reported [Lotrimin HCT 1%] 1 Appln TOP PRN 09/09/11 Reported APPLY NEEDED FOR RASH. Inpatient Medications: Current Inpatient Medications Medications (Trade) Dose Ordered Sig/Sirisha Route Start Time Stop Time Status Last Admin Dose Admin Ioversol (Optiray 320) 100 ml UD PRN IV 01/04/18 11:00 01/08/18 10:59 Budesonide (Pulmicort Inhaler) 2 puffs QAM INH 01/05/18 09:00 02/04/18 08:59 01/07/18 07:39 2 PUFFS Cefepime HCl 2000 mg/Syringe 20 ml @ 5 mls/min Q12H IV 01/04/18 16:00 01/11/18 15:59 01/07/18 04:18 5 MLS/MIN Acetaminophen (Tylenol Tab) 650 mg Q4H PRN PO 01/04/18 11:45 02/03/18 11:44 Al Hydrox/Mg Hydrox/Simethicone (Maalox Max Susp) 15 ml Q4H PRN PO 01/04/18 11:45 02/03/18 11:44 Magnesium Hydroxide (Milk Of Magnesia Susp) 30 ml Q12H PRN PO 01/04/18 11:45 02/03/18 11:44 Ondansetron HCl (Zofran Inj) 4 mg Q6H PRN IV 01/04/18 11:45 02/03/18 11:44 01/06/18 04:13 4 MG Miscellaneous Information (Consult) 1 ea UD PRN N/A 01/04/18 11:45 01/11/18 23:59 Methylcellulose (Citrucel Powder) 19 gm PM PO 01/04/18 21:00 02/03/18 20:59 01/06/18 21:11 19 GM Morphine Sulfate (MoRPHine SULFATE INJ) 2 mg Q4H PRN IV 01/04/18 18:00 01/18/18 17:59 01/07/18 14:23 2 MG Morphine Sulfate (MoRPHine SULFATE INJ) 4 mg Q4H PRN IV 01/04/18 18:00 01/18/18 17:59 01/05/18 23:26 4 MG Quetiapine Fumarate (seroQUEL TAB) 25 mg HS PRN PO 01/04/18 18:00 02/03/18 17:59 Levofloxacin 750 mg/Prmx 150 ml @ 100 mls/hr Q24H IV 01/05/18 16:00 01/11/18 15:59 01/06/18 15:55 100 MLS/HR Polyethylene (Miralax Powder Packet) 17 gm BID PO 01/06/18 12:00 02/05/18 11:59 01/06/18 12:11 17 GM Docusate Sodium (coLACE CAP) 100 mg BID PO 01/06/18 12:00 02/05/18 11:59 01/07/18 07:40 100 MG Prednisone (PredniSONE TAB) 20 mg BID PO 01/06/18 21:00 02/05/18 20:59 01/07/18 07:40 20 MG Metoprolol Tartrate (Lopressor Tab) 25 mg BID PO 01/06/18 21:00 02/05/18 20:59 01/07/18 07:40 25 MG Vancomycin HCl 1500 mg/Sodium Chloride 530 ml @ 200 mls/hr Q18H IV 01/07/18 10:00 01/11/18 23:59 01/07/18 09:14 200 MLS/HR Pantoprazole Sodium (Protonix Tab) 40 mg QAM PO 01/08/18 09:00 02/07/18 08:59 Heparin Sodium (Porcine) (Heparin Sq 5000 Unit/0.5ml) 5,000 unit Q12 SQ 01/08/18 09:00 02/07/18 08:59 Review of Systems Review of Systems Constitutional: + fever, No see HPI, No chills, No frequent headaches, No weight loss, No problem reported Eyes: No see HPI, No blurred vision, No double vision, No eye pain, No loss of night vision, No problem reported Neurological: No see HPI, No dizzy, No passing out, No numbness/tingling, No seizures, No problem reported Endocrine: No see HPI, No excessive thirst, No too hot, No too cold, No tired/ sluggish, No problem reported Gastrointestinal: No abdominal pain Cardiovascular: No heart murmur Respiratory: + shortness of breath, + problem reported Skin: No see HPI, No rash, No boils, No dry skin, No problem reported Blood / Lymphatic: No see HPI, No bleed easily, No bruise easily, No swollen glands, No problem reported Psychologic / Mental: No see HPI, No nervous, No trouble remembering, No difficulty sleeping, No problem reported Male : + blood in urine, + problem reported All Other Systems: Reviewed and Negative Physical Exam Vital Signs: Vital Signs Past 12 Hours Date Time Temp Pulse Resp B/P (MAP) Pulse Ox O2 Delivery O2 Flow Rate FiO2 01/07/18 12:00 BiPAP 100 01/07/18 11:42 36.9 71 18 141/68 (92) 95 01/07/18 08:00 96 BiPAP 100 01/07/18 07:11 81 96 100 01/07/18 06:31 36.3 70 25 136/73 (94) 92 BiPAP 100 01/07/18 04:29 76 93 100 01/07/18 04:12 37.3 70 26 135/80 (98) 97 BiPAP 100 01/07/18 04:00 95 BiPAP 100 Physical Exam: General Appearance: + moderate distress (Uncomfortable appearing) Eyes: bilateral eyes normal inspection ENT: hearing grossly normal Neck: no adenopathy Respiratory/Chest: + respiratory distress, + accessory muscle use Cardiovascular: no edema Gastrointestinal: Abdomen: normal abdomen Bladder: normal bladder Renal: normal renal Extremities: no pedal edema, no calf tenderness Neurologic/Psychiatric: alert, normal mood/affect, oriented x 3 Skin: warm/dry Lymphatic: no adenopathy Assessment & Plan Assessment & Plan Consult for gross hematuria in the setting of Flynn catheter placement and possible urinary tract infection Minimal blood in his Flynn at present Denies any significant complaints Still throws of his respiratory illness Overall, I do not feel any intervention is needed -aside from possible repeat urine culture to rule out persistent infection despite his cefepime and vancomycin I strongly suspect that his hematuria secondary to the Flynn, his overall status and his possible infection
[2018-01-07] MEDS ORDERED: MoRPHine SULFATE 2 MG/ML CARP IV SCH (16:00)
[2018-01-07] MEDS ORDERED: NURSING VERBAL MED ORDER ONE (16:00)
[2018-01-07] MEDS ORDERED: MoRPHine SULFATE 4 MG/ML 1 ML CARP\\VIAL IV SCH (16:00)
--- NOTE | 2018-01-07 17:11 | Discharge Summary ---
Discharge Summary Date of Service January 07, 2018. Discharge Summary Admission Date: January 04, 2018 at 11:46 Discharge Date: January 07, 2018 Discharge Disposition: Acute care facility Principal Diagnosis: Acute respiratory failure with hypoxia Problems/Secondary Diagnoses: 82 yo M with admitted on January 04, 2018 because acute respiratory failure with profound hypoxia requiring BiPAP to rescue his breathing found to have bilateral alveolar infiltrates of undetermined etiology on imaging Acute respiratory failure with hypoxia now require higher level of FiO2 support which is BiPAP FiO2 100% Possibility of pneumonia with infectious etiology, include a fungal infection or atypical and unusual organisms might be suspected Pneumonitis , may be related to amiodarone, stop amiodarone after double check with unit control clerk Atrial fibrillation, cardiology on the case, start the metoprolol, has been on on Xarelto, will discontinue Xarelto because of hematuria multiple cardioversion/ablation x2/pacer, Transaminitis Elevated INR on presentation New onset of hematuria, no signs of infection, no history of traumatic injury, hold Xarelto for now, urology consultation, check PSA Continue BiPAP , continue antibiotic, daily assessment to see if need to give Lasix, ECHO with preserved EF, pacemaker was interrogated and troponin unremarkable cardiology consult, no sure effects of amiodarone to the interstitial lung disease, however okay to stop amiodarone for now, Cont stress dose steroids for his previous adrenal suppression from daily prednisone use this should cover any inflammatory pneumonitis Pulmonary consulted: Considering UIP, sarcoidosis, connective tissue associated ILD ease, hypersensitivity and on classify oval diseases. Follow up hypersensitivity pneumonitis panel, vasculitic panel as well as rheumatologic panel for further evaluation, may need bronchoscope portfolio administrator Patient is condition is possible declining require higher level of oxygen support, and has hematuria, and complex cases, has requested ICU service to evaluation per report from portfolio administrator may plan to have intubated and have Bronch to have more studies GI DVT prophylaxis is covered, will give heparin while Xarelto is on hold PPI for GI prophylaxis Immunizations: Have You Had Influenza Vaccine: Yes Influenza Vaccine Date: Jun 02, 2012 History of Tetanus Vaccine?: Yes History of Pneumococcal: yes - within the past 5 years Pneumococcal Date: Mar 01, 2009 History of Hepatitis B Vaccine: No Procedures: Intubated Consultations: Fermenter Helper, unit control clerk, supervisor telephone information, Discharge Exam See today's progress Review of Systems: Constitutional: + problem reported (See today's progress) Physical Exam: General Appearance: + pertinent finding (See today's progress) Hospital Course 82 yo M with admitted on January 04, 2018 because acute respiratory failure with profound hypoxia requiring BiPAP to rescue his breathing found to have bilateral alveolar infiltrates of undetermined etiology on imaging Acute respiratory failure with hypoxia now require higher level of FiO2 support which is BiPAP FiO2 100% Possibility of pneumonia with infectious etiology, include a fungal infection or atypical and unusual organisms might be suspected Pneumonitis , may be related to amiodarone, stop amiodarone after double check with unit control clerk Atrial fibrillation, cardiology on the case, start the metoprolol, has been on on Xarelto, will discontinue Xarelto because of hematuria multiple cardioversion/ablation x2/pacer, Transaminitis Elevated INR on presentation New onset of hematuria, no signs of infection, no history of traumatic injury, hold Xarelto for now, urology consultation, check PSA Has been a BiPAP , continue antibiotic, daily assessment to see if need to give Lasix, ECHO with preserved EF, pacemaker was interrogated and troponin unremarkable cardiology consult, no sure effects of amiodarone to the interstitial lung disease, however okay to stop amiodarone for now, Cont stress dose steroids for his previous adrenal suppression from daily prednisone use this should cover any inflammatory pneumonitis Pulmonary consulted: Considering UIP, sarcoidosis, connective tissue associated ILD ease, hypersensitivity and on classify oval diseases. Follow up hypersensitivity pneumonitis panel, vasculitic panel as well as rheumatologic panel for further evaluation, may need bronchoscope portfolio administrator Patient is condition is possible declining require higher level of oxygen support, and has hematuria, and complex cases, has requested ICU service to evaluation per report from portfolio administrator may plan to have intubated and have Bronch to have more studies Discussed with unit control clerk, patient's PCP, and supervisor telephone information, the best choice for patient to go to the [facility] for evaluation and treatment Consent signed, Called to [facility] ICU, Dr. Russell accepting patient Patient will fly out after intubation Discussed with patient and family, they understand the patient is in the midst of pending for transferring, they are willing to take the risk of waiting, I discussed with patient and patient's family about patient's conditions, I told them patient's condition is guarded/grave, I answered all questions to their satisfactions. The patient and family had multiple questions which were answered to their full satisfaction. GI DVT prophylaxis is covered, will give heparin while Xarelto is on hold PPI for GI prophylaxis Total Time Spent: Greater than 30 minutes (Past prolonged care for more than 30 minutes for the coordination with ICU, cardiology, Dr. the patient, transferring) This includes examination of the patient, discharge planning, medication reconciliation, and communication with other providers. Discharge Instructions Please refer to the electronic Patient Visit Report (Discharge Instructions) for additional information. Additional Copies To Ammon Pan M.D.; Victor Manuel Osorio M.D.
--- NOTE | 2018-01-07 17:13 | Discharge Instructions ---
Discharge Instructions Date of Service January 07, 2018. Admission Reason for Admission: Acute Respiratory Failure With Hypoxia Discharge Discharge Diagnosis / Problem: Acute respiratory failure Discharge Goals Goal(s): Decrease discomfort, Improve function, Increase independence, Improve disease control, Improve nutritional status, Learn about illness, Diagnostic testing, Therapeutic intervention, Prevent Disease Progression, Specific goals Activity Recommendations Activity Limitations: as noted below (Bedrest) . Instructions / Follow-Up Instructions / Follow-Up You have acute respiratory failure secondary to noncardiac pulmonary process, I am transferring you to [facility], Dr. Jacobo is accepting you Please follow-up with PCP after discharge from [facility] Current Hospital Diet Patient's current hospital diet: Low Sodium Diet (2gm Na) Discharge Diet Recommended Diet: N/A Pending Studies Studies pending at discharge: no Laboratory Results Meds Administered (Past 24Hrs) Medications (Trade) Dose Ordered Sig/Sirisha Route Start Time Stop Time Status Last Admin Dose Admin Promethazine HCl 12.5 mg/Sodium Chloride 50.5 ml @ 204 mls/hr NOW STAT IV 01/06/18 05:25 01/06/18 05:39 DC 01/06/18 05:38 204 MLS/HR Furosemide 40 mg/ Syringe 4 ml @ 4 mls/min TODAY@1130 ONCE IV 01/06/18 11:30 01/06/18 11:31 DC 01/06/18 12:13 4 MLS/MIN Polyethylene (Miralax Powder Packet) 17 gm BID PO 01/06/18 12:00 02/05/18 11:59 01/06/18 12:11 17 GM Docusate Sodium (coLACE CAP) 100 mg BID PO 01/06/18 12:00 02/05/18 11:59 01/07/18 07:40 100 MG Prednisone (PredniSONE TAB) 20 mg BID PO 01/06/18 21:00 02/05/18 20:59 01/07/18 07:40 20 MG Metoprolol Tartrate (Lopressor Tab) 25 mg BID PO 01/06/18 21:00 02/05/18 20:59 01/07/18 07:40 25 MG Vancomycin HCl 1500 mg/Sodium Chloride 530 ml @ 200 mls/hr Q18H IV 01/07/18 10:00 01/11/18 23:59 01/07/18 09:14 200 MLS/HR Medical Emergencies . Who to Call and When: Medical Emergencies: If at any time you feel your situation is an emergency, please call 911 immediately. . Non-Emergent Contact Non-Emergency issues call your: Primary Care Provider, Head Of [employer] . . "Provider Documentation" section prepared by James Rosa. .
--- NOTE | 2018-01-07 17:14 | Critical Care Consultation ---
Critical Care Consultation Date of Consultation: January 07, 2018. Attending Physician: James Rosa MD, PhD Reason for Consultation: Hypoxic respiratory failure History of Present Illness Patient is an 82-year-old male who was admitted to the hospital on January 04 for worsening shortness of breath. He has a significant past medical history of atrial fibrillation on long-term anticoagulation who has undergone ablation as well as cardioversion. At this time the patient was on amiodarone and there has been concern for possible amiodarone toxicity. Most notably he was seen by his primary air traffic systems technician Dr. Kristin Medley and underwent PFTs, he has a long- standing interstitial process that has been progressive in nature. I have been asked away in on the patient's cardiopulmonary status as well as advanced therapeutic options in the setting of worsening hypoxia. I have reviewed the chart which includes the pulmonary consultation by Dr. Sanford, cardiology consultation by Dr. Chen and urology consultation by Dr. Ahuja. I also discussed the case with Dr. Sanford personally today. Patient is currently on vancomycin, cefepime, Levaquin for possible pulmonary infections, blood cultures have remained negative and a sputum culture is pending at this time. Patient is covered for both community-acquired as well as hospital-acquired chest infections. An extensive discussion with the patient, his , and his son all at the bedside. Patient's oxygen saturation are 92% on noninvasive mechanical ventilation on 100% FiO2. The patient was attempted to be transitioned to high flow nasal cannula as a different therapeutic option, his oxygen saturations did not get above 85% and these were discontinued and transition back to noninvasive mechanical ventilation. Past Medical/Surgical History Hypertension A. fib History of cholecystectomy History of colon cancer Family History Heart disease Lung disease Social History Smoking Status: Former Smoker Alcohol Use: socially Drug Use: none Marital Status: Housing Status: lives with family Occupation Status: retired Allergies Coded Allergies: Cat Dander (Verified Allergy, Intermediate, asthma, hives, 01/04/18) Dust (Verified Allergy, Intermediate, asthma, hives, 01/04/18) Grass (Verified Allergy, Intermediate, asthma,hives, 01/04/18) Molds & Smuts (Verified Allergy, Intermediate, asthma,hives, 01/04/18) Sulfa Antibiotics (Verified Allergy, Intermediate, hives, 01/04/18) Home Medications Scheduled Amiodarone Hcl (Cordarone), 200 MG PO DAILY Budesonide (Pulmicort Flexhaler), 1-2 PUFFS INH QAM Ciprofloxacin (Ciprofloxacin HCl), 1 TAB PO UD Clobetasol Propionate (Temovate), 1 APPLN TOP BID Clotrimazole (Lotrimin 1%), DIRECTED Fexofenadine Hcl (Yenni Allergy), 180 MG PO QAM Ketoconazole (Topical) (Ketoconazole), 1 APPLN TOP 2XWK Methylcellulose (Laxative) (Citrucel Fiber Laxative), DIRECTED Multiple Vitamins W/ Minerals (Preservision Areds), 1 CAP PO BID Olopatadine Hydrochloride (Pataday), 1 DROPS OP DIRECTED Prednisone (Prednisone), 5 MG PO DAILY Ranibizumab (Lucentis), DIRECTED Rivaroxaban (Xarelto), 20 MG PO QAM Sucralfate (Carafate), 10 ML PO QID Triamcinolone Acet (Aristocort 0.1%), DIRECTED [Lotrimin HCT 1%], 1 APPLN TOP PRN Scheduled PRN Acetaminophen Tab (Tylenol), 2 TABS PO Q6 PRN for Pain Hyoscyamine Sulfate (Levsin), 2 TABS PO DAILY PRN for ABDOMINAL CRAMPING Current Inpatient Medications Current Inpatient Medications Medications (Trade) Dose Ordered Sig/Sirisha Route Start Time Stop Time Status Last Admin Dose Admin Ioversol (Optiray 320) 100 ml UD PRN IV 01/04/18 11:00 01/08/18 10:59 Budesonide (Pulmicort Inhaler) 2 puffs QAM INH 01/05/18 09:00 02/04/18 08:59 01/07/18 07:39 2 PUFFS Cefepime HCl 2000 mg/Syringe 20 ml @ 5 mls/min Q12H IV 01/04/18 16:00 01/11/18 15:59 01/07/18 15:51 5 MLS/MIN Acetaminophen (Tylenol Tab) 650 mg Q4H PRN PO 01/04/18 11:45 02/03/18 11:44 Al Hydrox/Mg Hydrox/Simethicone (Maalox Max Susp) 15 ml Q4H PRN PO 01/04/18 11:45 02/03/18 11:44 Magnesium Hydroxide (Milk Of Magnesia Susp) 30 ml Q12H PRN PO 01/04/18 11:45 02/03/18 11:44 Ondansetron HCl (Zofran Inj) 4 mg Q6H PRN IV 01/04/18 11:45 02/03/18 11:44 01/06/18 04:13 4 MG Miscellaneous Information (Consult) 1 ea UD PRN N/A 01/04/18 11:45 01/11/18 23:59 Methylcellulose (Citrucel Powder) 19 gm PM PO 01/04/18 21:00 02/03/18 20:59 01/06/18 21:11 19 GM Morphine Sulfate (MoRPHine SULFATE INJ) 2 mg Q4H PRN IV 01/04/18 18:00 01/18/18 17:59 01/07/18 15:51 2 MG Morphine Sulfate (MoRPHine SULFATE INJ) 4 mg Q4H PRN IV 01/04/18 18:00 01/18/18 17:59 01/05/18 23:26 4 MG Quetiapine Fumarate (seroQUEL TAB) 25 mg HS PRN PO 01/04/18 18:00 02/03/18 17:59 Levofloxacin 750 mg/Prmx 150 ml @ 100 mls/hr Q24H IV 01/05/18 16:00 01/11/18 15:59 01/07/18 15:51 100 MLS/HR Polyethylene (Miralax Powder Packet) 17 gm BID PO 01/06/18 12:00 02/05/18 11:59 01/06/18 12:11 17 GM Docusate Sodium (coLACE CAP) 100 mg BID PO 01/06/18 12:00 02/05/18 11:59 01/07/18 07:40 100 MG Prednisone (PredniSONE TAB) 20 mg BID PO 01/06/18 21:00 02/05/18 20:59 01/07/18 07:40 20 MG Metoprolol Tartrate (Lopressor Tab) 25 mg BID PO 01/06/18 21:00 02/05/18 20:59 01/07/18 07:40 25 MG Vancomycin HCl 1500 mg/Sodium Chloride 530 ml @ 200 mls/hr Q18H IV 01/07/18 10:00 01/11/18 23:59 01/07/18 09:14 200 MLS/HR Pantoprazole Sodium (Protonix Tab) 40 mg QAM PO 01/08/18 09:00 02/07/18 08:59 Heparin Sodium (Porcine) (Heparin Sq 5000 Unit/0.5ml) 5,000 unit Q12 SQ 01/08/18 09:00 02/07/18 08:59 Furosemide (Lasix Inj) 40 mg NOW STAT IV 01/07/18 15:47 01/07/18 15:48 UNV Miscellaneous Information (Nursing Verbal Med Order) 1 ea ONE ONCE N/A 01/07/18 16:00 01/07/18 16:01 UNV Review of Systems A 10 point review of systems has been obtained and is otherwise negative. Respiratory: + shortness of breath, + dyspnea on exertion, + dyspnea at rest Genitourinary - Male: + hematuria Physical Exam Date Time Temp Pulse Resp B/P (MAP) Pulse Ox O2 Delivery O2 Flow Rate FiO2 01/07/18 12:00 BiPAP 100 01/07/18 11:42 36.9 71 18 141/68 (92) 95 01/07/18 08:00 96 BiPAP 100 01/07/18 07:11 81 96 100 01/07/18 06:31 36.3 70 25 136/73 (94) 92 BiPAP 100 01/07/18 04:29 76 93 100 01/07/18 04:12 37.3 70 26 135/80 (98) 97 BiPAP 100 01/07/18 04:00 95 BiPAP 100 01/07/18 02:03 70 96 100 01/07/18 00:37 70 92 100 01/07/18 00:16 37.4 70 30 133/67 (89) 91 BiPAP 80 01/07/18 00:01 89 BiPAP 80 01/06/18 23:27 78 92 80 01/06/18 22:54 81 96 70 01/06/18 20:00 BiPAP 01/06/18 19:56 36.5 71 31 131/63 (85) 92 BiPAP 15.0 01/06/18 19:05 78 95 70 01/06/18 16:00 BiPAP General: Alert. nontoxic. Skin: Warm, dry, Head: Atraumatic Ears, nose, mouth and throat: airway patent Cardiovascular: Normal peripheral perfusion Respiratory: no respiratory distress, with non-invasive mask in place Gastrointestinal: Non distended Musculoskeletal: No deformity Laboratory Results Last 24 Hours Test 01/06/18 17:30 01/07/18 01:07 01/07/18 05:30 Vancomycin Level Trough 11.6 mcg/ml Arterial Blood pH 7.45 Arterial Blood Partial Pressure CO2 38 mmHg Arterial Blood Partial Pressure O2 68 mm/Hg Arterial Blood HCO3 26 mmol/L Arterial Blood Oxygen Saturation 93.6 % Arterial Blood Base Excess 2.0 mEq/L Arterial Blood Gas Delivery 100% BIPAP Rolando Test POS White Blood Count 13.25 K/uL Red Blood Count 3.96 M/uL Hemoglobin 12.2 g/dL Hematocrit 35.5 % Mean Corpuscular Volume 89.6 fL Mean Corpuscular Hemoglobin 30.8 pg Mean Corpuscular Hemoglobin Concent 34.4 g/dl RDW Standard Deviation 47.6 fL RDW Coefficient of Variation 14.4 % Platelet Count 147 K/uL Mean Platelet Volume 10.1 fL Sodium Level 136 mmol/L Potassium Level 4.1 mmol/L Chloride Level 103 mmol/L Carbon Dioxide Level 26 mmol/L Anion Gap 7.0 mmol/L Blood Urea Nitrogen 33 mg/dl Creatinine 1.39 mg/dl Est Creatinine Clear Calc Drug Dose 45.8 ml/min Estimated GFR () 54.7 Estimated GFR (Non- 47.2 BUN/Creatinine Ratio 23.9 Random Glucose 132 mg/dl Calcium Level 8.0 mg/dl Total Bilirubin 0.7 mg/dl Aspartate Amino Transf (AST/SGOT) 60 U/L Alanine Aminotransferase (ALT/SGPT) 80 U/L Alkaline Phosphatase 173 U/L Total Protein 5.9 gm/dl Albumin 2.0 gm/dl Globulin 3.9 gm/dl Albumin/Globulin Ratio 0.5 Prostate Specific Antigen 0.672 ng/ml Free Prostate Specific Antigen 0.10 ng/ml Percent Free Prostate Specific Ag % Diagnostic Results FINDINGS: The subclavian pacer with leads in the right atrium and right ventricular apex. Multiple external leads project over the thorax degrading evaluation. Atherosclerosis of the aortic arch. Cardiac silhouette mildly enlarged, unchanged. Diffuse hazy added density to the lungs with coarse reticular background lung markings. No large pleural effusion or pneumothorax. Degenerative changes of the thoracic spine. Upper abdomen normal. IMPRESSION: 1. Unchanged diffuse bilateral pulmonary infiltrates most concerning for diffuse alveolar damage with infection or cardiogenic edema considered less likely. Electronically signed by: Wander Kay M.D Assessment & Plan Reason Critically Ill: Acute hypoxic respiratory failure PLAN: Neuro: Sedation -Fentanyl Versed infusions as needed for transfer Resp: Acute hypoxic respiratory failure Family history interstitial lung disease -Patient is appropriately covered for hospital and community-acquired chest infections -Patient is on high-dose steroids -Patient has MADISON profile pending as well as additional autoimmune workup, -Previous autoimmune workup reviewed: MADISON panel negative 04/10/2017 -I discussed the case with the patient's primary care physician, patient desires additional workup at tertiary care center -Given the high level oxygen requirement I feel the patient will be best served during transfer with intubation -We will perform rapid sequence intubation with etomidate and succinylcholine CV: Atrial fibrillation -Status post ablation -History of amiodarone therapy -Amiodarone discontinued Fluids/Renal: Hematuria -Reviewed urology evaluation -Hematuria considered to be secondary to Flynn trauma -Added anti-GBM however I think this is unlikely -Patient's been adequately diuresed at this time ID: Broad-spectrum antibiotics -On Levaquin, cefepime, vancomycin GI/Nutrition: N.p.o. Mild transaminitis -Patient had normal LFTs from 2017, question aspects of cor pulmonale -Added acute hepatitis panel Heme: Long-term anticoagulation secondary to atrial fibrillation - Currently on Xarelto therapy History of cutaneous T-cell lymphoma -Uric acid and LDH -Peripheral smear -Patient may benefit from HIV testing Endocrine: Blood sugars within acceptable limits Vascular access: Peripheral IVs I have personally spent 35 minutes of critical care time in the direct management of this patient. This is a life/limb threatening event. This includes time spent evaluating patient, direct bedside care, chart review, placing orders, interpretation of diagnostic studies, discussion with consultants, patient, and/or family members regarding treatment decisions, as well as other required patient management activities. This time is exclusive of all separately billable procedures, and teaching time and separate from and in addition to any other critical care service time.
[2018-01-07] MEDS ORDERED: RAPID SEQUENCE INDUCTION BAG ONE (17:23)
[2018-01-07] MEDS ORDERED: MIDAZOLAM 125MG/250ML D5W 250 ML IV PRN (17:31)
[2018-01-07] MEDS ORDERED: SUCCINYLCHOLINE CHLORIDE 20 MG/ML 10 ML VIAL IV STA (17:31)
[2018-01-07] MEDS ORDERED: ETOMIDATE 2 MG/ML 20 ML VIAL IV ONE ×2 (17:45→22:44)
[2018-01-07] MEDS ORDERED: FENTANYL 1250MCG/250ML NSS 250 ML IV PRN (17:45)
[2018-01-07] MEDS: MoRPHine SULFATE 4 MG/ML 1 ML CARP\\VIAL IV PRN (18:56)
[2018-01-07 20:02] LABS: HEP C IGG 13 YRS+OLDER_RFLX NEG (NEG)
--- NOTE | 2018-01-07 20:40 | DIAGNOSTIC IMAGING REPORT ---
CHEST ONE VIEW PORTABLE CLINICAL HISTORY: Respiratory failure COMPARISON STUDY: Earlier in the day FINDINGS: The cardiac and mediastinal contours remain stable. There is a left subclavian dual-chamber central venous pacemaker present. An endotracheal tube is visualized with its tip 10 cm above the vira. The tube should be advanced. There is a nasogastric tube which extends into the stomach. There are extensive bilateral pulmonary airspace opacities.[ IMPRESSION: 1. Interval placement of an endotracheal tube 10 cm above the vira 2. Interval placement of a nasogastric tube which passes into the stomach 3. Extensive bilateral pulmonary airspace opacities Electronically signed by: Babak Roy M.D. 01/07/2018 8:39 PM Dictated Date/Time: 01/07/2018 8:37 PM
[2018-01-07] MEDS ORDERED: PANTOprazole INJ 40 MG in SYRINGE 0 ML IV SCH (21:00)
[2018-01-07] MEDS: METHYLCELLULOSE POWDER 454 GM JAR PO SCH (21:00)
--- NOTE | 2018-01-07 21:31 | DIAGNOSTIC IMAGING REPORT ---
CHEST ONE VIEW PORTABLE CLINICAL HISTORY: ET Tube placement RESPIRATORY FAILURE COMPARISON STUDY: Earlier in the day FINDINGS: The endotracheal tube has been advanced and is now positioned 43 mm above the vira. There is a nasogastric tube which passes into the stomach. There is a left subclavian dual-chamber central venous pacemaker. Extensive bilateral pulmonary airspace opacities.[ IMPRESSION: Interval advancement of the endotracheal tube which is now positioned 43 mm above the vira. Persistent bilateral pulmonary airspace opacities Electronically signed by: Babak Roy M.D. 01/07/2018 9:29 PM Dictated Date/Time: 01/07/2018 9:29 PM
[2018-01-07] MEDS ORDERED: FENTANYL CITRATE INJ 50 MCG/1 ML 2 ML VIAL IV ONE (22:44)
[2018-01-08] MEDS ORDERED: HEPARIN SOD 5000 UNIT/0.5 ML CARP SQ SCH (09:00)
[2018-01-08] MEDS ORDERED: PANTOprazole SOD 40 MG TAB PO SCH (09:00)
[2018-01-08] MEDS ORDERED: VANCOMYCIN TROUGH ONE (21:30)
== END 2018-01-07 22:45 | disposition short-term general hospital (02) | DRG 208 ==
LOC: C.EDB 09:17 → C.2E 11:46 → ENRESERV 12:13 → C.MSICU 01-07 17:23
PROVIDERS: ADMIT Internal Medicine; ATTEND Hospitalist
PROC: 5A1935Z Respiratory Ventilation, Less than 24 Consecutive Hours (ICD-10-PCS; principal; 2018-01-07)
DX: J96.01 Acute respiratory failure with hypoxia (principal); J16.8 Pneumonia due to other specified infectious organisms; E87.2 Acidosis; I48.92 Unspecified atrial flutter; T46.2X5A Adverse effect of other antidysrhythmic drugs, initial encounter; R30.0 Dysuria; R79.1 Abnormal coagulation profile; R31.0 Gross hematuria; R74.0 Nonspecific elevation of levels of transaminase and lactic acid dehydrogenase [LDH]; Z66 Do not resuscitate; I48.91 Unspecified atrial fibrillation; I11.9 Hypertensive heart disease without heart failure; J45.909 Unspecified asthma, uncomplicated; M19.90 Unspecified osteoarthritis, unspecified site; Z51.81 Encounter for therapeutic drug level monitoring; Z79.899 Other long term (current) drug therapy; Z79.01 Long term (current) use of anticoagulants; Z79.52 Long term (current) use of systemic steroids; Z95.0 Presence of cardiac pacemaker; Z85.038 Personal history of other malignant neoplasm of large intestine; Z85.72 Personal history of non-Hodgkin lymphomas; Z92.21 Personal history of antineoplastic chemotherapy; Z87.891 Personal history of nicotine dependence; Z88.2 Allergy status to sulfonamides; Z91.048 Other nonmedicinal substance allergy status; Z88.8 Allergy status to other drugs, medicaments and biological substances